=== PATIENT | female | born 1955 | race Caucasian/White ===

== ENCOUNTER 2016-10-14 11:21 | Outpatient (CLI) | payer MEDICAID | END 2016-10-14 11:22 | disposition home or self-care (01) | DX: L40.0 Psoriasis vulgaris (principal); Z79.899 Other long term (current) drug therapy ==

== ENCOUNTER 2016-10-30 10:37 | Outpatient (CLI) | payer MEDICAID | END 2016-10-30 10:38 | DX: L40.0 Psoriasis vulgaris (principal); Z79.899 Other long term (current) drug therapy ==

== ENCOUNTER 2016-11-13 08:00 | Outpatient (CLI) | payer MEDICAID | END 2016-11-13 08:01 | disposition home or self-care (01) | DX: L40.0 Psoriasis vulgaris (principal); Z79.899 Other long term (current) drug therapy ==

== ENCOUNTER 2016-11-14 | Outpatient (CLI) | payer MEDICAID | END 2016-11-14 08:48 | disposition home or self-care (01) | DX: J44.9 Chronic obstructive pulmonary disease, unspecified (principal) ==

== ENCOUNTER 2016-11-14 08:45 | Outpatient (CLI) | payer MEDICAID | END 2016-11-14 08:46 | disposition home or self-care (01) | DX: Z13.820 Encounter for screening for osteoporosis (principal); M85.89 Other specified disorders of bone density and structure, multiple sites ==

== ENCOUNTER 2016-12-23 09:43 | Outpatient (CLI) | payer MEDICAID | END 2016-12-23 09:44 | disposition home or self-care (01) | DX: L40.0 Psoriasis vulgaris (principal); Z79.899 Other long term (current) drug therapy ==

== ENCOUNTER 2017-01-10 09:18 | Outpatient (CLI) | payer MEDICAID | END 2017-01-10 09:19 | disposition home or self-care (01) | DX: L40.0 Psoriasis vulgaris (principal); Z79.899 Other long term (current) drug therapy ==

== ENCOUNTER 2017-02-06 10:17 | Outpatient (CLI) | payer MEDICAID ==
[2017-02-06 14:08] LABS: BASOPHILS # (AUTO) 0.1 10^3/uL (0.0-0.1); BASOPHILS % (AUTO) 0.8 %; EOSINOPHILS # (AUTO) 0.1 10^3/uL (0.0-0.7); EOSINOPHILS % (AUTO) 0.8 %; HCT - HEMATOCRIT 37.8 % (37.0-47.0); HGB - HEMOGLOBIN 13.1 g/dL (12.0-16.0); LYMPHOCYTES % (AUTO) 25.4 %; MEAN CORPUSCULAR HEMOGLOBIN 32.8 pg (27.0-31.0); MEAN CORPUSCULAR HGB CONC 34.6 g/dL (32.0-36.0); MEAN CORPUSCULAR VOLUME 94.6 fL (81.0-99.0); MEAN PLATELET VOLUME 8.3 fL (7.9-10.8); MONOCYTES # (AUTO) 0.9 10^3/uL (0.0-1.0); RED BLOOD COUNT 3.99 10^6/uL (4.20-5.40); RED CELL DISTRIBUTION WIDTH 14.1 % (12.0-15.0); UNCORRECTED WHITE BLOOD COUNT 8.1 x10^3/uL; WHITE BLOOD COUNT 8.1 x10^3/uL (4.8-10.8)
[2017-02-06 14:29] LABS: ALBUMIN/GLOBULIN RATIO 1.3 (1.0-2.2); BILIRUBIN,TOTAL 0.5 mg/dL (0.2-1.0); CALCIUM 9.3 mg/dL (8.5-10.3); CREATININE 0.7 mg/dL (0.4-1.0); POTASSIUM 3.8 mmol/L (3.5-5.0); TOTAL PROTEIN 7.3 g/dL (6.7-8.2)
== END 2017-02-06 10:18 | disposition home or self-care (01) ==
LOC: LAB.N 10:17
PROVIDERS: ATTEND Nurse Practitioner Family
DX: L40.0 Psoriasis vulgaris (principal)
CPT/HCPCS: 36415; 80053; 85025

== ENCOUNTER 2017-03-04 13:20 | Outpatient (CLI) | payer MEDICAID ==
[2017-03-04 19:18] LABS: BASOPHILS # (AUTO) 0.1 10^3/uL (0.0-0.1); BASOPHILS % (AUTO) 1.1 %; EOSINOPHILS # (AUTO) 0.1 10^3/uL (0.0-0.7); EOSINOPHILS % (AUTO) 1.8 %; HCT - HEMATOCRIT 41.7 % (37.0-47.0); HGB - HEMOGLOBIN 13.6 g/dL (12.0-16.0); LYMPHOCYTES # (AUTO) 1.6 10^3/uL (1.5-3.5); LYMPHOCYTES % (AUTO) 24.1 %; MEAN CORPUSCULAR HEMOGLOBIN 31.8 pg (27.0-31.0); MEAN CORPUSCULAR HGB CONC 32.5 g/dL (32.0-36.0); MEAN CORPUSCULAR VOLUME 97.8 fL (81.0-99.0); MEAN PLATELET VOLUME 8.4 fL (7.9-10.8); MONOCYTES # (AUTO) 0.8 10^3/uL (0.0-1.0); MONOCYTES % (AUTO) 12.2 %; NEUTROPHILS # (AUTO) 3.9 10^3/uL (1.5-6.6); NEUTROPHILS % (AUTO) 60.8 %; RED BLOOD COUNT 4.27 10^6/uL (4.20-5.40); RED CELL DISTRIBUTION WIDTH 14.2 % (12.0-15.0); UNCORRECTED WHITE BLOOD COUNT 6.4 x10^3/uL; WHITE BLOOD COUNT 6.4 x10^3/uL (4.8-10.8)
[2017-03-04 19:19] LABS: ALBUMIN/GLOBULIN RATIO 1.4 (1.0-2.2); BILIRUBIN,TOTAL 0.6 mg/dL (0.2-1.0); CALCIUM 8.9 mg/dL (8.5-10.3); CREATININE 0.8 mg/dL (0.4-1.0); TOTAL PROTEIN 7.6 g/dL (6.7-8.2)
== END 2017-03-04 23:59 | disposition home or self-care (01) ==
LOC: LAB.N 13:20
PROVIDERS: ATTEND Nurse Practitioner Family
DX: Z79.899 Other long term (current) drug therapy (principal)
CPT/HCPCS: 36415; 80053; 85025

== ENCOUNTER 2017-04-01 10:50 | Outpatient (CLI) | payer MEDICAID ==
[2017-04-01 12:51] LABS: BASOPHILS # (AUTO) 0.1 10^3/uL (0.0-0.1); BASOPHILS % (AUTO) 0.7 %; EOSINOPHILS # (AUTO) 0.1 10^3/uL (0.0-0.7); EOSINOPHILS % (AUTO) 1.1 %; HCT - HEMATOCRIT 40.4 % (37.0-47.0); HGB - HEMOGLOBIN 13.7 g/dL (12.0-16.0); LYMPHOCYTES # (AUTO) 2.1 10^3/uL (1.5-3.5); LYMPHOCYTES % (AUTO) 27.4 %; MEAN CORPUSCULAR HEMOGLOBIN 32.1 pg (27.0-31.0); MEAN CORPUSCULAR HGB CONC 33.9 g/dL (32.0-36.0); MEAN CORPUSCULAR VOLUME 94.7 fL (81.0-99.0); MEAN PLATELET VOLUME 8.2 fL (7.9-10.8); MONOCYTES # (AUTO) 0.9 10^3/uL (0.0-1.0); NEUTROPHILS # (AUTO) 4.4 10^3/uL (1.5-6.6); NEUTROPHILS % (AUTO) 58.8 %; RED BLOOD COUNT 4.27 10^6/uL (4.20-5.40); RED CELL DISTRIBUTION WIDTH 13.4 % (12.0-15.0); UNCORRECTED WHITE BLOOD COUNT 7.5 x10^3/uL; WHITE BLOOD COUNT 7.5 x10^3/uL (4.8-10.8)
[2017-04-01 13:02] LABS: ALBUMIN/GLOBULIN RATIO 1.4 (1.0-2.2); BILIRUBIN,TOTAL 0.6 mg/dL (0.2-1.0); CREATININE 0.8 mg/dL (0.4-1.0); POTASSIUM 3.8 mmol/L (3.5-5.0); TOTAL PROTEIN 7.7 g/dL (6.7-8.2)
== END 2017-04-01 10:51 | disposition home or self-care (01) ==
LOC: LAB.N 10:50
PROVIDERS: ATTEND Nurse Practitioner Family
DX: L40.0 Psoriasis vulgaris (principal); Z79.899 Other long term (current) drug therapy
CPT/HCPCS: 36415; 80053; 85025

== ENCOUNTER 2017-04-15 09:44 | Outpatient (CLI) | payer MEDICAID ==
[2017-04-18 14:25] LABS: TEST RESULT REPORT (())
== END 2017-04-15 09:45 | disposition home or self-care (01) ==
LOC: LAB 09:44
PROVIDERS: ATTEND Nurse Practitioner Family
DX: L40.0 Psoriasis vulgaris (principal)
CPT/HCPCS: 36415; 81599; 86480; 87340

== ENCOUNTER 2017-05-08 13:28 | Outpatient (CLI) | payer MEDICAID ==
[2017-05-08 18:53] LABS: BASOPHILS # (AUTO) 0.1 10^3/uL (0.0-0.1); BASOPHILS % (AUTO) 0.9 %; EOSINOPHILS # (AUTO) 0.1 10^3/uL (0.0-0.7); EOSINOPHILS % (AUTO) 1.4 %; HCT - HEMATOCRIT 40.7 % (37.0-47.0); HGB - HEMOGLOBIN 13.4 g/dL (12.0-16.0); LYMPHOCYTES # (AUTO) 1.6 10^3/uL (1.5-3.5); LYMPHOCYTES % (AUTO) 26.1 %; MEAN CORPUSCULAR HGB CONC 32.8 g/dL (32.0-36.0); MEAN CORPUSCULAR VOLUME 97.4 fL (81.0-99.0); MEAN PLATELET VOLUME 8.1 fL (7.9-10.8); MONOCYTES # (AUTO) 0.7 10^3/uL (0.0-1.0); MONOCYTES % (AUTO) 11.7 %; NEUTROPHILS # (AUTO) 3.6 10^3/uL (1.5-6.6); NEUTROPHILS % (AUTO) 59.9 %; RED BLOOD COUNT 4.18 10^6/uL (4.20-5.40); RED CELL DISTRIBUTION WIDTH 14.1 % (12.0-15.0); UNCORRECTED WHITE BLOOD COUNT 6.1 x10^3/uL; WHITE BLOOD COUNT 6.1 x10^3/uL (4.8-10.8)
[2017-05-08 19:02] LABS: ALBUMIN/GLOBULIN RATIO 1.4 (1.0-2.2); BILIRUBIN,TOTAL 0.7 mg/dL (0.2-1.0); CREATININE 0.8 mg/dL (0.4-1.0); POTASSIUM 4.3 mmol/L (3.5-5.0); TOTAL PROTEIN 7.3 g/dL (6.7-8.2)
== END 2017-05-08 13:29 ==
LOC: LAB.N 13:28
PROVIDERS: ATTEND Nurse Practitioner Family
DX: Z79.899 Other long term (current) drug therapy (principal)
CPT/HCPCS: 36415; 80053; 85025

== ENCOUNTER 2017-07-04 09:12 | Outpatient (CLI) | payer MEDICAID ==
[2017-07-04 13:20] LABS: BASOPHILS % (AUTO) 0.8 %; EOSINOPHILS # (AUTO) 0.1 10^3/uL (0.0-0.7); EOSINOPHILS % (AUTO) 1.9 %; HCT - HEMATOCRIT 39.2 % (37.0-47.0); HGB - HEMOGLOBIN 13.2 g/dL (12.0-16.0); LYMPHOCYTES # (AUTO) 2.1 10^3/uL (1.5-3.5); LYMPHOCYTES % (AUTO) 35.9 %; MEAN CORPUSCULAR HEMOGLOBIN 32.1 pg (27.0-31.0); MEAN CORPUSCULAR HGB CONC 33.6 g/dL (32.0-36.0); MEAN CORPUSCULAR VOLUME 95.7 fL (81.0-99.0); MEAN PLATELET VOLUME 7.8 fL (7.9-10.8); MONOCYTES # (AUTO) 0.5 10^3/uL (0.0-1.0); MONOCYTES % (AUTO) 8.6 %; NEUTROPHILS % (AUTO) 52.8 %; RED CELL DISTRIBUTION WIDTH 13.8 % (12.0-15.0); UNCORRECTED WHITE BLOOD COUNT 5.7 x10^3/uL; WHITE BLOOD COUNT 5.7 x10^3/uL (4.8-10.8)
[2017-07-04 13:44] LABS: THYROID STIMULATING HORMONE 1.65 uIU/mL (0.34-5.60)
[2017-07-04 13:50] LABS: ALBUMIN/GLOBULIN RATIO 1.4 (1.0-2.2); BILIRUBIN,TOTAL 0.5 mg/dL (0.2-1.0); CALCIUM 8.5 mg/dL (8.5-10.3); CREATININE 0.9 mg/dL (0.4-1.0); POTASSIUM 3.7 mmol/L (3.5-5.0); TOTAL PROTEIN 7.1 g/dL (6.7-8.2)
[2017-07-04 13:53] LABS: FOLATE 23.01 ng/mL (5.90 - >24.8)
[2017-07-04 14:07] LABS: IRON 96 ug/dL (28-170); TOTAL IRON BINDING CAPACITY 256 ug/dL (250-450); TRANSFERRIN 183 mg/dL (192-382)
== END 2017-07-04 09:13 | disposition home or self-care (01) ==
LOC: LAB.N 09:12
PROVIDERS: ATTEND Nurse Practitioner Family
DX: E07.9 Disorder of thyroid, unspecified (principal); I10 Essential (primary) hypertension; M12.89 Other specific arthropathies, not elsewhere classified, multiple sites; E53.8 Deficiency of other specified B group vitamins; Z79.899 Other long term (current) drug therapy; G90.09 Other idiopathic peripheral autonomic neuropathy; L40.0 Psoriasis vulgaris
CPT/HCPCS: 36415; 80053; 82607; 82746; 83540; 84439; 84443; 84466; 85025

== ENCOUNTER 2017-07-07 18:54 | Outpatient (CLI) | payer MEDICAID ==
--- NOTE | 2017-07-09 09:07 | Ultrasound Report ---
HEAD AND NECK ULTRASOUND: 07/07/2017 COMPARISON: Neck ultrasound 04/09/2016. INDICATION: Followup thyroid nodules. TECHNIQUE: Sonographic evaluation of the thyroid ws performed. FINDINGS: There are several bilateral mixed solid and cystic thyroid nodules. They are very small m easuring up to 4 mm on the right and 5 mm on the left. One similar nodule is in the isthmus, 5 mm. Background echogenicity of the thyroid appears normal. There is no increased vascularity. Right lobe 4.7 x 1.7 x 1.4 cm. Volume is 6 mL. Left lobe 4.8 x 1.7 x 1.2 cm. Volume is 5 mL. IMPRESSION: MULTIPLE BILATERAL SUBCENTIMETER THYROID NODULES. NO APPRECIABLE CHANGE. JOB #: [id number] EXT JOB #:[id number]
== END 2017-07-07 18:55 | disposition home or self-care (01) ==
LOC: DI 18:54
PROVIDERS: ATTEND Internal Medicine
DX: E04.2 Nontoxic multinodular goiter (principal)
CPT/HCPCS: 76536

== ENCOUNTER 2017-09-25 08:00 | Outpatient (CLI) | payer MEDICAID ==
[2017-09-25 12:53] LABS: BASOPHILS % (AUTO) 0.8 %; EOSINOPHILS % (AUTO) 0.9 %; LYMPHOCYTES # (AUTO) 1.5 10^3/uL (1.5-3.5); LYMPHOCYTES % (AUTO) 33.6 %; MEAN CORPUSCULAR HEMOGLOBIN 31.7 pg (27.0-31.0); MEAN CORPUSCULAR HGB CONC 34.2 g/dL (32.0-36.0); MEAN CORPUSCULAR VOLUME 92.9 fL (81.0-99.0); MEAN PLATELET VOLUME 8.1 fL (7.9-10.8); MONOCYTES # (AUTO) 0.4 10^3/uL (0.0-1.0); MONOCYTES % (AUTO) 9.6 %; NEUTROPHILS # (AUTO) 2.4 10^3/uL (1.5-6.6); NEUTROPHILS % (AUTO) 55.1 %; PLT - PLATELET COUNT 273 10^3/uL (130-450); RED CELL DISTRIBUTION WIDTH 12.3 % (12.0-15.0); WHITE BLOOD COUNT 4.4 x10^3/uL (4.8-10.8)
[2017-09-25 13:12] LABS: ALBUMIN 4.2 g/dL (3.2-5.5); ALBUMIN/GLOBULIN RATIO 1.3 (1.0-2.2); BILIRUBIN,TOTAL 0.3 mg/dL (0.2-1.0); CALCIUM 8.5 mg/dL (8.5-10.3); CREATININE 0.6 mg/dL (0.4-1.0); TOTAL PROTEIN 7.4 g/dL (6.7-8.2)
== END 2017-09-25 08:01 ==
LOC: LAB.N 08:00
PROVIDERS: ATTEND Nurse Practitioner Family
DX: Z79.899 Other long term (current) drug therapy (principal); L40.0 Psoriasis vulgaris
CPT/HCPCS: 36415; 80053; 85025

== ENCOUNTER 2017-11-03 08:00 | Outpatient (CLI) | payer MEDICAID ==
[2017-11-03 19:12] LABS: BASOPHILS # (AUTO) 0.1 10^3/uL (0.0-0.1); BASOPHILS % (AUTO) 0.9 %; EOSINOPHILS % (AUTO) 0.6 %; HGB - HEMOGLOBIN 13.7 g/dL (12.0-16.0); LYMPHOCYTES # (AUTO) 1.9 10^3/uL (1.5-3.5); LYMPHOCYTES % (AUTO) 27.6 %; MEAN CORPUSCULAR HEMOGLOBIN 30.4 pg (27.0-31.0); MEAN CORPUSCULAR HGB CONC 32.7 g/dL (32.0-36.0); MEAN CORPUSCULAR VOLUME 93.1 fL (81.0-99.0); MEAN PLATELET VOLUME 8.5 fL (7.9-10.8); MONOCYTES # (AUTO) 0.6 10^3/uL (0.0-1.0); MONOCYTES % (AUTO) 8.5 %; NEUTROPHILS # (AUTO) 4.3 10^3/uL (1.5-6.6); NEUTROPHILS % (AUTO) 62.4 %; PLT - PLATELET COUNT 287 10^3/uL (130-450); RED BLOOD COUNT 4.49 10^6/uL (4.20-5.40); RED CELL DISTRIBUTION WIDTH 12.8 % (12.0-15.0); WHITE BLOOD COUNT 6.9 x10^3/uL (4.8-10.8)
[2017-11-03 19:17] LABS: ALBUMIN 4.5 g/dL (3.2-5.5); ALBUMIN/GLOBULIN RATIO 1.5 (1.0-2.2); BILIRUBIN,TOTAL 0.7 mg/dL (0.2-1.0); CALCIUM 8.7 mg/dL (8.5-10.3); CREATININE 0.8 mg/dL (0.4-1.0); TOTAL PROTEIN 7.5 g/dL (6.7-8.2)
== END 2017-11-03 08:01 | disposition home or self-care (01) ==
LOC: LAB.N 08:00
PROVIDERS: ATTEND Nurse Practitioner Family
DX: L40.0 Psoriasis vulgaris (principal); Z79.899 Other long term (current) drug therapy
CPT/HCPCS: 36415; 80053; 85025

== ENCOUNTER 2018-01-28 10:53 | Outpatient (CLI) | payer MEDICAID ==
[2018-01-28 19:16] LABS: HGB - HEMOGLOBIN 12.6 g/dL (12.0-16.0); MEAN CORPUSCULAR HEMOGLOBIN 31.7 pg (27.0-31.0); MEAN CORPUSCULAR HGB CONC 32.8 g/dL (32.0-36.0); MEAN CORPUSCULAR VOLUME 96.8 fL (81.0-99.0); MEAN PLATELET VOLUME 7.3 fL (7.9-10.8); RED BLOOD COUNT 3.98 10^6/uL (4.20-5.40); RED CELL DISTRIBUTION WIDTH 14.7 % (12.0-15.0); WHITE BLOOD COUNT 4.9 x10^3/uL (4.8-10.8)
[2018-01-28 19:30] LABS: ALBUMIN 4.1 g/dL (3.2-5.5); ALBUMIN/GLOBULIN RATIO 1.6 (1.0-2.2); BILIRUBIN,TOTAL 0.8 mg/dL (0.2-1.0); CALCIUM 8.6 mg/dL (8.5-10.3); CREATININE 0.8 mg/dL (0.4-1.0); TOTAL PROTEIN 6.6 g/dL (6.7-8.2)
== END 2018-01-28 10:54 ==
LOC: LAB.N 10:53
PROVIDERS: ATTEND Internal Medicine
DX: R73.9 Hyperglycemia, unspecified (principal); E07.9 Disorder of thyroid, unspecified; E53.8 Deficiency of other specified B group vitamins
CPT/HCPCS: 36415; 80053; 84443; 85027

== ENCOUNTER 2018-04-20 15:48 | Outpatient (CLI) | payer MEDICAID ==
--- NOTE | 2018-04-21 10:11 | Mammography Report ---
Procedure Date: 04/20/2018 Accession Number: [id number] / [id number] Procedure: MGN - Screening Mammo Dig Bilat CPT Code: FULL RESULT: EXAM: Screening Mammo Dig Bilat DATE: 04/20/2018 4:18 PM CLINICAL HISTORY: 62-year-old female with history of left breast biopsy with benign pathology presents for screening mammogram. TECHNIQUE: Bilateral CC and MLO views were obtained. COMPARISON: 03/29/2016. FINDINGS: The breasts demonstrate scattered fibroglandular densities bilaterally. Typically benign bilateral vascular calcifications are noted. No suspicious masses, clustered microcalcifications, or regions of architectural distortion are identified. IMPRESSION: Benign findings RECOMMENDATION: Routine annual screening unless otherwise clinically indicated. BIRADS CATEGORY 2: Benign findings STANDARD QUALIFYING STATEMENTS: 1. This examination was reviewed with the aid of Computer-Aided Detection (CAD). 2. A negative or benign imaging report should not delay biopsy if clinically suspicious findings are present. Consider surgical consultation if warrented. More than 5% of cancers are not identified by imaging. 3. Dense breasts may obscure an underlying neoplasm.
== END 2018-04-20 15:49 | disposition home or self-care (01) ==
LOC: DI.N 15:48
PROVIDERS: ATTEND Internal Medicine
DX: Z12.31 Encounter for screening mammogram for malignant neoplasm of breast (principal)
CPT/HCPCS: 77067

== ENCOUNTER 2018-06-22 09:36 | Day surgery (SDC) | payer MEDICAID ==
[2018-06-22] MEDS ORDERED: LACTATED RINGERS 1,000 ML IV ONE ×2 (09:57)
[2018-06-22] MEDS ORDERED: MIDAZOLAM 2 MG/2 ML VIAL IVP ONE (11:04)
[2018-06-22] MEDS ORDERED: fentaNYL 250 MCG/5 ML VIAL IVP ONE (11:04)
[2018-06-22 11:56] VITALS: BP 110/73
== END 2018-06-22 09:37 | disposition home or self-care (01) ==
LOC: SDS 09:36
PROVIDERS: ATTEND Surgery
PROC: 0DBK8ZZ Excision of Ascending Colon, Via Natural or Artificial Opening Endoscopic (ICD-10-PCS; principal; 2018-06-22 11:15)
DX: Z12.11 Encounter for screening for malignant neoplasm of colon (principal); D12.2 Benign neoplasm of ascending colon; K64.8 Other hemorrhoids; K57.30 Diverticulosis of large intestine without perforation or abscess without bleeding; R63.4 Abnormal weight loss; J43.9 Emphysema, unspecified; E66.9 Obesity, unspecified; Z68.32 Body mass index [BMI] 32.0-32.9, adult; Z87.891 Personal history of nicotine dependence
CPT/HCPCS: 45385; J3010; J7120

== ENCOUNTER 2018-07-17 09:52 | Outpatient (CLI) | payer MEDICAID ==
--- NOTE | 2018-07-17 11:05 | XRAY Report ---
Reason: PAIN IN LEFT WRIST,PAIN IN JOINTS OF LEFT HAND Procedure Date: 07/17/2018 Accession Number: [id number] / [id number] Procedure: XRN - Wrist 4 View LT CPT Code: FULL RESULT: EXAM: LEFT WRIST RADIOGRAPHY EXAM DATE: 07/17/2018 10:10 AM. CLINICAL HISTORY: Pain in left wrist. Pain in joints of left hand. COMPARISON: WRIST 4 VIEW LT 08/15/2016 11:54 AM. TECHNIQUE: 4 views. FINDINGS: Interval arthrodesis of carpal bones with 2 partially threaded cannulated screws as well as resection of the scaphoid with partial osseous fusion of carpal bones. No acute fracture or dislocation is identified. IMPRESSION: Interval wrist joint fusion with resection of the scaphoid. RADIA
--- NOTE | 2018-07-17 11:06 | XRAY Report ---
Reason: pain in joints of left hand/wrist Procedure Date: 07/17/2018 Accession Number: [id number] / [id number] Procedure: XRN - Forearm LT CPT Code: FULL RESULT: EXAM: LEFT FOREARM RADIOGRAPHY EXAM DATE: 07/17/2018 10:20 AM. CLINICAL HISTORY: Pain in joints of left hand/wrist. COMPARISON: WRIST 4 VIEW LT 07/17/2018 10:10 AM. TECHNIQUE: 2 views. FINDINGS: No fracture or dislocation of the radius or ulna is identified. Visualized aspects of the elbow joint are unremarkable. For findings of the wrist, please refer to radiographs of the wrist performed at the same time. IMPRESSION: No fracture or dislocation of radius or ulna. RADIA
== END 2018-07-17 09:53 | disposition home or self-care (01) ==
LOC: DI.N 09:52
PROVIDERS: ATTEND Internal Medicine
DX: M25.532 Pain in left wrist (principal); M25.542 Pain in joints of left hand; Z98.1 Arthrodesis status

== ENCOUNTER 2019-02-24 08:00 | Outpatient (CLI) | payer MEDICAID ==
[2019-02-24 19:00] LABS: BASOPHILS % (AUTO) 0.7 %; EOSINOPHILS % (AUTO) 0.9 %; HGB - HEMOGLOBIN 13.7 g/dL (12.0-16.0); LYMPHOCYTES # (AUTO) 0.8 10^3/uL (1.5-3.5); LYMPHOCYTES % (AUTO) 20.6 %; MEAN CORPUSCULAR HEMOGLOBIN 31.5 pg (27.0-31.0); MEAN CORPUSCULAR HGB CONC 32.5 g/dL (32.0-36.0); MEAN CORPUSCULAR VOLUME 97.1 fL (81.0-99.0); MEAN PLATELET VOLUME 7.4 fL (7.9-10.8); MONOCYTES # (AUTO) 0.7 10^3/uL (0.0-1.0); MONOCYTES % (AUTO) 16.5 %; NEUTROPHILS # (AUTO) 2.4 10^3/uL (1.5-6.6); NEUTROPHILS % (AUTO) 61.3 %; PLT - PLATELET COUNT 193 10^3/uL (130-450); RED BLOOD COUNT 4.35 10^6/uL (4.20-5.40); RED CELL DISTRIBUTION WIDTH 15.4 % (12.0-15.0); WHITE BLOOD COUNT 3.9 x10^3/uL (4.8-10.8)
[2019-02-24 19:13] LABS: ALBUMIN 4.1 g/dL (3.2-5.5); ALBUMIN/GLOBULIN RATIO 1.2 (1.0-2.2); ALKALINE PHOSPHATASE 56 IU/L (42-121); ALT ALANINE AMINOTRANSFERASE 15 IU/L (10-60); AST ASPARTATE AMINOTRANSFERASE 20 IU/L (10-42); BILIRUBIN,TOTAL 0.7 mg/dL (0.2-1.0); BUN - BLOOD UREA NITROGEN 17 mg/dL (6-20); CARBON DIOXIDE - CO2 25 mmol/L (21-32); CHLORIDE 103 mmol/L (101-111); CHOL/HDL RATIO 2.8 (<4.4); CHOLESTEROL 256 mg/dL; CREATININE 0.8 mg/dL (0.4-1.0); GFR - MDRD 73 (>89); GLUCOSE 112 mg/dL (70-100); HDL CHOLESTEROL 90 mg/dL; LDL CHOLESTEROL,CALCULATED 144 mg/dL; LDL/HDL RATIO 1.6 (<4.4); SODIUM 137 mmol/L (135-145); TOTAL PROTEIN 7.6 g/dL (6.7-8.2); VLDL CHOLESTEROL 22 mg/dL
[2019-02-24 20:15] LABS: THYROID STIMULATING HORMONE 1.07 uIU/mL (0.34-5.60)
[2019-02-24 20:26] LABS: FOLATE 6.64 ng/mL (5.90 - >24.8)
== END 2019-02-24 23:59 | disposition home or self-care (01) ==
LOC: LAB.N 08:00
PROVIDERS: ATTEND Internal Medicine
DX: J44.9 Chronic obstructive pulmonary disease, unspecified (principal); R73.9 Hyperglycemia, unspecified; I10 Essential (primary) hypertension; R53.81 Other malaise; M19.90 Unspecified osteoarthritis, unspecified site; E53.8 Deficiency of other specified B group vitamins; E07.9 Disorder of thyroid, unspecified; Z79.899 Other long term (current) drug therapy
CPT/HCPCS: 36415; 80053; 80061; 82607; 82746; 83721; 84443; 85025

== ENCOUNTER 2019-05-27 05:32 | Outpatient (CLI) | payer MEDICAID | END 2019-05-27 05:33 | disposition short-term general hospital (02) | LOC: EMS 05:32 | PROVIDERS: ATTEND Surgery | DX: R11.2 Nausea with vomiting, unspecified (principal); R06.02 Shortness of breath; R51 Headache | CPT/HCPCS: A0425; A0427; A0999 ==

== ENCOUNTER 2019-06-07 13:20 | Outpatient (CLI) | payer MEDICAID | END 2019-06-08 13:21 | disposition short-term general hospital (02) | LOC: EMS 13:20 | PROVIDERS: ATTEND Surgery | DX: R11.2 Nausea with vomiting, unspecified (principal); R10.9 Unspecified abdominal pain | CPT/HCPCS: A0425; A0427; A0999 ==

== ENCOUNTER 2019-06-22 14:24 | Outpatient (CLI) | payer MEDICAID | END 2019-06-22 14:25 | disposition critical access hospital (66) | LOC: EMS 14:24 | PROVIDERS: ATTEND Surgery | DX: R10.9 Unspecified abdominal pain (principal); R11.2 Nausea with vomiting, unspecified | CPT/HCPCS: A0425; A0429; A0999 ==

== ENCOUNTER 2019-06-22 14:48 | Emergency (ER) | payer MEDICAID ==
--- NOTE | 2019-06-22 15:04 | ED Physician Documentation ---
PD HPI ABD PAIN - Stated complaint Stated Complaint: R FLANK PX - History obtained from History obtained from: Patient - History of Present Illness Timing - onset: How many weeks ago (3-4 weeks ago, onset early May and seen at [facility] 05/27 with Dx of ureterolithiasis and given pain meds. Seen by Urology follow up with KUB done that showed stone was gone. Still having frequent fank to RUW pain, associated with nausea and voiting each morning. Improves with Zofran.) Timing - details: Abrupt onset (initially about a month ago, with symptoms c/w kidney stone. Seen at [place] and had CT showing some hydronephrosis but no ureteral stones (renal stones yes). Considered passed stone. Has had pains intermittently to right abd and right flank. Has morning nausea and some emesis daily for the past several weeks.) Quality: Cramping, Aching, Pain Location: RUQ, Epigastric Radiation: Right flank Improved by: Meds (antiemetics) Worsened by: No: Breathing, Palpation Associated symptoms: Nausea (daily in mornings). No: Fever, Diarrhea, Dysuria, Hematuria Similar symptoms before: Diagnosis (Prior kidney stones with similar pains. However had not had a ureteral stone visible on a CT scan a month ago in follow- up to a prior visit for presumed passed stone) Review of Systems Constitutional: denies: Fever, Chills Nose: denies: Rhinorrhea / runny nose, Congestion Throat: reports: Sore throat (from vomiting) Cardiac: denies: Chest pain / pressure, Palpitations Respiratory: denies: Dyspnea, Cough GI: reports: Abdominal Pain (RUQ to right flank area often the past few weeks.), Nausea, Vomiting (daily for the past few weeks, improves with Zofran but recurrent each morning.) : denies: Dysuria, Frequency, Discharge Skin: denies: Rash Musculoskeletal: reports: Back pain (right flank and lateral upper abd) Neurologic: reports: Generalized weakness. denies: Focal weakness, Difficulty speaking PD PAST MEDICAL HISTORY - Past Medical History Cardiovascular: None Respiratory: COPD, Emphysema, Pneumonia, Shortness of breath Endocrine/Autoimmune: None GI: Colon polyps : Kidney stones HEENT: Other Psych: Anxiety, Panic attacks Musculoskeletal: Osteoarthritis, Other Derm: Psoriasis - Past Surgical History Past Surgical History: Yes General: Hiatal hernia repair Ortho: Knee replacement /[employer]: Hysterectomy - Present Medications Home Medications: Ambulatory Orders Medication Instructions Recorded Confirmed DULoxetine [Cymbalta] 30 mg PO Q48H 02/14/14 04/01/16 Gabapentin [Neurontin] 1,200 mg PO TID #60 tablet 02/14/14 06/22/18 Zolpidem [Ambien] 5 mg PO QPM PRN 02/14/14 06/22/18 diazePAM [Valium] 5 mg PO TID PRN 02/14/14 06/22/18 Folic Acid 1 mg PO DAILY 03/29/16 06/22/18 Hydrochlorothiazide 25 mg PO DAILY 03/29/16 04/01/16 Tiotropium [place] [Spiriva] 1 puffs INH DAILY 03/29/16 06/22/18 Dicyclomine HCl 10 mg PO TID PRN #25 capsule 06/22/19 Famotidine 20 mg PO DAILY #30 tablet 06/22/19 Ondansetron Odt [Zofran] 4 mg TL Q6H PRN #25 tablet 06/22/19 Sucralfate [Carafate] 1 gm PO TID #30 tablet 06/22/19 - Allergies Allergies/Adverse Reactions: Allergies Allergy/AdvReac Type Severity Reaction Status Date / Time Penicillins Allergy Severe Edema Verified 06/22/19 15:04 venlafaxine HCl * Allergy Severe Kidney Verified 06/22/19 15:04 [From Effexor] failure oxycodone AdvReac Intermediate Somnolence Verified 06/22/19 15:04 - Social History Does the pt smoke?: No Smoking Status: Never smoker Does the pt drink ETOH?: No Does the pt have substance abuse?: Yes PD ED PE NORMAL - Vitals Vital signs reviewed: Yes - General General: Alert and oriented X 3, Well developed/nourished - HEENT HEENT: Pharynx benign - Neck Neck: Supple, no meningeal sign, No adenopathy - Cardiac Cardiac: RRR, No murmur - Respiratory Respiratory: Clear bilaterally - Abdomen Abdomen: Normal bowel sounds, Soft, Non distended, No organomegaly, Other (some tender right upper abd and lower costal margin. No CVA tenderness. ) - Female Female : Deferred - Rectal Rectal: Deferred - Back Back: No CVA TTP - Derm Derm: Normal color, Warm and dry, No rash - Extremities Extremities: No tenderness to palpate, Normal ROM s pain, No edema, No calf tenderness / cord - Neuro Neuro: Alert and oriented X 3, No motor deficit, Normal speech Results - Vitals Vitals: Vital Signs - 24 hr 06/22/19 06/22/19 14:51 15:50 Temperature 37.0 C 36.9 C Heart Rate 82 73 Respiratory 20 16 Rate Blood Pressure 136/93 H 117/91 H O2 Saturation 96 97 Oxygen O2 Source [With Activity] Room air O2 Source [Without Activity] Nasal cannula O2 Source Room air - Labs Labs: Laboratory Tests 06/22/19 06/22/19 15:11 15:11 WBC 4.8 RBC 4.26 Hgb 13.8 Hct 41.9 MCV 98.4 MCH 32.4 H MCHC 32.9 RDW 12.3 Plt Count 259 MPV 9.3 Neut # (Auto) 3.4 Lymph # (Auto) 0.9 L [place] # (Auto) 0.5 Eos # (Auto) 0.0 Baso # (Auto) 0.0 Absolute Nucleated RBC 0.00 Nucleated RBC % 0.0 Sodium 142 Potassium 3.7 Chloride 103 Carbon Dioxide 28 Anion Gap 11.0 BUN 12 Creatinine 0.7 Estimated GFR (MDRD) 85 L Glucose 119 H Calcium 9.0 Magnesium 1.7 Total Bilirubin 0.9 AST 17 ALT 13 Alkaline Phosphatase 43 Total Protein 7.5 Albumin 4.6 Globulin 2.9 Albumin/Globulin Ratio 1.6 Lipase 26 - Rads (name of study) KUB CT Radiology: Prelim report reviewed (Several renal stones. The kidney appears normal. There are no ureteral stones nor hydronephrosis. Gallbladder is normal and bile duct is normal as well. Pancreas appears normal.), See rad report PD MEDICAL DECISION MAKING - ED course Complexity details: reviewed results, considered differential (Can get a scan again to see if subsequent stones have shifted down. Will evaluate blood tests and CT as well for gallbladder possibilities. Will check lipase for pancreas. She has been having upper abdominal pain to the right side associated with nausea daily. Consider possibilities of gastritis or duodenitis as well. We will add medications for that and have her follow-up with her primary care and possibly referral for GI.), d/w patient Departure - Departure Clinical Impression: Right upper quadrant abdominal pain Condition: Stable Record reviewed to determine appropriate education?: Yes Instructions: ED Abdominal Pain Unkn Cause Follow-Up: Angela Stover MD [Primary Care Provider] - Prescriptions: Dicyclomine HCl 10 mg PO TID PRN #25 capsule PRN Reason: Abdominal Pain Famotidine 20 mg PO DAILY #30 tablet Ondansetron Odt [Zofran] 4 mg TL Q6H PRN #25 tablet PRN Reason: Nausea / Vomiting Sucralfate [Carafate] 1 gm PO TID #30 tablet Comments: Not clear the cause of your pain. Given the pain she been having as well as a daily nausea, I consider whether there may be some irritation of the stomach or the initial part of the intestine. Treat this with acid reducing medicine famotidine daily and also to coat the stomach and initial intestine with sucralfate 3 times a day. This is taken as a tablet. Continue ondansetron if needed for nausea. He can try dicyclomine for stomach pains and cramps. Add Tylenol if needed. Follow-up with your primary care for further evaluation. The might consider referring you for scope to evaluate the stomach and in initial intestine. Your CT scan did not show any abnormality of your gallbladder pancreas or liver. There is stones in the kidney but none in the ureter.
[2019-06-22] MEDS ORDERED: HYDROmorphone 1 MG/ML CARPUJECT IVP STA ×2 (15:07→16:42)
[2019-06-22] MEDS ORDERED: FAMOTIDINE 20 MG/2 ML VIAL IVP STA (15:07)
[2019-06-22] MEDS ORDERED: SODIUM CHLORIDE 0.9% 1,000 ML IV ONE (15:07)
[2019-06-22] MEDS ORDERED: ONDANSETRON 4 MG/2 ML VIAL IVP STA (15:07)
[2019-06-22] MEDS ORDERED: KETOROLAC 15 MG/ML VIAL IVP STA (15:07)
[2019-06-22 15:20] LABS: BASOPHILS % (AUTO) 0.6 %; EOSINOPHILS % (AUTO) 0.2 %; HGB - HEMOGLOBIN 13.8 g/dL (12.0-16.0); LYMPHOCYTES # (AUTO) 0.9 10^3/uL (1.5-3.5); MEAN CORPUSCULAR HEMOGLOBIN 32.4 pg (27.0-31.0); MEAN CORPUSCULAR HGB CONC 32.9 g/dL (32.0-36.0); MEAN CORPUSCULAR VOLUME 98.4 fL (81.0-99.0); MEAN PLATELET VOLUME 9.3 fL (7.9-10.8); MONOCYTES # (AUTO) 0.5 10^3/uL (0.0-1.0); MONOCYTES % (AUTO) 10.1 %; NEUTROPHILS # (AUTO) 3.4 10^3/uL (1.5-6.6); NEUTROPHILS % (AUTO) 70.7 %; PLT - PLATELET COUNT 259 10^3/uL (130-450); RED BLOOD COUNT 4.26 10^6/uL (4.20-5.40); RED CELL DISTRIBUTION WIDTH 12.3 % (12.0-15.0); WHITE BLOOD COUNT 4.8 x10^3/uL (4.8-10.8)
[2019-06-22 15:36] LABS: ALBUMIN 4.6 g/dL (3.2-5.5); ALBUMIN/GLOBULIN RATIO 1.6 (1.0-2.2); BILIRUBIN,TOTAL 0.9 mg/dL (0.2-1.0); CREATININE 0.7 mg/dL (0.4-1.0); MAGNESIUM 1.7 mg/dL (1.7-2.8); TOTAL PROTEIN 7.5 g/dL (6.7-8.2)
--- NOTE | 2019-06-22 16:00 | CT Report ---
Reason: RUQ/right flank pain Procedure Date: 06/22/2019 Accession Number: [id number] / [id number] Procedure: CT - Abdomen/Pelvis WO CPT Code: FULL RESULT: EXAM: CT ABDOMEN AND PELVIS EXAM DATE: 06/22/2019 03:29 PM. CLINICAL HISTORY: RUQ/right flank pain. COMPARISONS: None. TECHNIQUE: Routine helical CT imaging was performed through the abdomen and pelvis. IV contrast: None. Enteric contrast: No. Reconstructions: Coronal and sagittal. In accordance with CT protocol optimization, one or more of the following dose reduction techniques were utilized for this exam: automated exposure control, adjustment of mA and/or KV based on patient size, or use of iterative reconstructive technique. FINDINGS: Lung Bases: Unremarkable. Liver: Multiple liver cysts largest 4.3 cm right lobe. Calcifications in the falciform ligament region. Possible density at the region of the falciform, left lobe. Gallbladder/Bile Ducts: Unremarkable. Spleen: Normal. Pancreas: Normal. Adrenal Glands: Normal. Kidneys: Right renal cysts. 3 mm nonobstructing calcification upper and lower pole left renal cyst. Left kidney 8 mm cortical density with posterior possibly a hyperdense cyst. Lower pole vascular or collecting system nonobstructing calcification. Peritoneal Cavity/Bowel: Post gastric surgery. Diverticulosis. No retroperitoneal adenopathy. No free fluid in the abdomen appendix is not visualized but no pericecal inflammatory changes. Pelvic Organs: Normal. The bladder and visualized pelvic organs are within normal limits. Vasculature: No aneurysms or other significant abnormality. Bones: L3 compression. Other: None. IMPRESSION: 1. Nonobstructing right renal calcifications 3 mm. Right renal cyst 2. Left kidney 8 mm density too small to characterize possible hyperdense cyst. Left renal cyst. Vascular versus nonobstructing collecting system calcification. 3. Appendix not identified but no pericecal inflammatory changes. 4. Diverticulosis. 5. Possible low density lesion in the left lobe near the falciform ligament. Further evaluation could be with CT liver protocol. 6. Liver cysts. RADIA
[2019-06-22] MEDS ORDERED: MAG HYDROX/AL HYDROX/SIMETH 30 ML UDC PO STA (16:42)
[2019-06-22 17:59] LABS: BILIRUBIN,URINE NEGATIVE (NEGATIVE); GLUCOSE, URINE (UA) NEGATIVE (NEGATIVE); KETONES,URINE (UA) TRACE mg/dL (NEGATIVE); LEUKOCYTE ESTERASE, URINE NEGATIVE (NEGATIVE); NITRITE,URINE NEGATIVE (NEGATIVE); OCCULT BLOOD,URINE TRACE-INTA (NEGATIVE); PH,URINE 7.5 PH (5.0-7.5); PROTEIN,URINE NEGATIVE (NEGATIVE); UROBILINOGEN,URINE 0.2 (NORMAL) E.U./dL (NORMAL)
[2019-06-22 18:01] LABS: CLARITY,URINE CLEAR (CLEAR)
[2019-06-22 18:24] VITALS: BP 135/92
[2019-06-22] MEDS ORDERED: ONDANSETRON ODT 4 MG TABLET TL STA (18:58)
== END 2019-06-22 18:52 | disposition home or self-care (01) ==
LOC: EDUNIT# → ED 14:48
DX: R10.11 Right upper quadrant pain (principal); R11.2 Nausea with vomiting, unspecified; N20.0 Calculus of kidney; N28.1 Cyst of kidney, acquired; K76.89 Other specified diseases of liver
CPT/HCPCS: 36415; 74176; 80053; 81003; 83690; 83735; 85025; 96361; 96374; 96375; 96376; 99284; 99285; A9270; J1170; Q0162; 81001; 87086

== ENCOUNTER 2019-09-21 10:15 | Outpatient (CLI) | payer MEDICAID ==
--- NOTE | 2019-09-21 15:17 | XRAY Report ---
Reason: wrist pain Procedure Date: 09/21/2019 Accession Number: [id number] / [id number] Procedure: XRN - Hand 3 View RT CPT Code: Final Report FULL RESULT: EXAMS: RIGHT HAND AND WRIST RADIOGRAPHY EXAM DATE: 09/21/2019 11:05 AM. CLINICAL HISTORY: Fall, pain. COMPARISON: None. TECHNIQUE: 4 views of hand and 3 views of wrist. FINDINGS: Bones: Osteopenia. No definite fracture or other bone lesion. Joints: Mild degenerative changes in the first CMC joint and navicular multangular joint. Otherwise unremarkable. Soft Tissues: Mild soft tissue swelling. IMPRESSION: Mild soft tissue swelling. RADIA
--- NOTE | 2019-09-21 15:17 | XRAY Report ---
Reason: wrist pain Procedure Date: 09/21/2019 Accession Number: [id number] / [id number] Procedure: XRN - Wrist 3 View RT CPT Code: Final Report FULL RESULT: EXAMS: RIGHT HAND AND WRIST RADIOGRAPHY EXAM DATE: 09/21/2019 11:05 AM. CLINICAL HISTORY: Fall, pain. COMPARISON: None. TECHNIQUE: 4 views of hand and 3 views of wrist. FINDINGS: Bones: Osteopenia. No definite fracture or other bone lesion. Joints: Mild degenerative changes in the first CMC joint and navicular multangular joint. Otherwise unremarkable. Soft Tissues: Mild soft tissue swelling. IMPRESSION: Mild soft tissue swelling. RADIA
== END 2019-09-21 10:16 | disposition home or self-care (01) ==
LOC: DI.N 10:15
PROVIDERS: ATTEND Internal Medicine
DX: M18.11 Unilateral primary osteoarthritis of first carpometacarpal joint, right hand (principal); R22.31 Localized swelling, mass and lump, right upper limb

== ENCOUNTER 2020-03-07 08:00 | Outpatient (CLI) | payer MEDICAID ==
--- NOTE | 2020-03-07 12:01 | XRAY Report ---
Reason: ATYPICAL CHEST PAIN Procedure Date: 03/07/2020 Accession Number: [id number] / [id number] Procedure: WCP - Chest 2 View X-Ray CPT Code: 68382 Final Report FULL RESULT: PROCEDURE: Chest 2 View X-Ray INDICATIONS: ATYPICAL CHEST PAIN TECHNIQUE: 2 view(s) of the chest. COMPARISON: Chest x-ray 01/09/2016 FINDINGS: Surgical changes and devices: Partially visualized left shoulder arthroplasty. Clips are noted overlying the left upper quadrant. Lungs and pleura: No pleural effusions or pneumothorax. Lungs are clear. Mediastinum: Mediastinal contours are normal. Heart size is normal. Bones and chest wall: No suspicious bony abnormalities. Soft tissues appear unremarkable. IMPRESSION: No acute pulmonary process. Reviewed by: Seda Penaloza MD on 03/07/2020 12:00 PM PDT Approved by: Seda Penaloza MD on 03/07/2020 12:00 PM PDT Station ID: [id number]
== END 2020-03-07 08:01 | disposition home or self-care (01) ==
LOC: DI.WCP 08:00
PROVIDERS: ATTEND Internal Medicine
DX: R07.89 Other chest pain (principal); Z96.612 Presence of left artificial shoulder joint
CPT/HCPCS: 71046

== ENCOUNTER 2020-03-27 15:03 | Outpatient (CLI) | payer MEDICAID | END 2020-03-27 15:04 | disposition critical access hospital (66) | LOC: EMS 15:03 | PROVIDERS: ATTEND Surgery | DX: R05 Cough (principal); R11.10 Vomiting, unspecified | CPT/HCPCS: A0425; A0429; A0999 ==

== ENCOUNTER 2020-03-27 16:13 | Emergency (ER) | payer MEDICAID ==
[2020-03-27] MEDS ORDERED: SODIUM CHLORIDE 0.9% 1,000 ML IV STA (17:03)
[2020-03-27] MEDS ORDERED: DEXAMETHASONE 10 MG/ML VIAL IVP STA (17:04)
[2020-03-27] MEDS ORDERED: BENZONATATE 100 MG CAPSULE PO STA (17:04)
[2020-03-27] MEDS ORDERED: IPRATROPIUM/ALBUTEROL 3 ML NEB INH STA (17:04)
[2020-03-27] MEDS ORDERED: ONDANSETRON 4 MG/2 ML VIAL IVP STA (17:04)
[2020-03-27 17:25] LABS: BASOPHILS % (AUTO) 0.2 %; EOSINOPHILS % (AUTO) 0.5 %; HGB - HEMOGLOBIN 13.5 g/dL (12.0-16.0); LYMPHOCYTES % (AUTO) 23.2 %; MEAN CORPUSCULAR HEMOGLOBIN 33.6 pg (27.0-31.0); MEAN CORPUSCULAR HGB CONC 34.2 g/dL (32.0-36.0); MEAN CORPUSCULAR VOLUME 98.3 fL (81.0-99.0); MONOCYTES # (AUTO) 0.7 10^3/uL (0.0-1.0); MONOCYTES % (AUTO) 16.1 %; NEUTROPHILS # (AUTO) 2.5 10^3/uL (1.5-6.6); NEUTROPHILS % (AUTO) 59.8 %; PLT - PLATELET COUNT 139 10^3/uL (130-450); RED BLOOD COUNT 4.02 10^6/uL (4.20-5.40); WHITE BLOOD COUNT 4.2 x10^3/uL (4.8-10.8)
[2020-03-27 17:47] LABS: ALBUMIN/GLOBULIN RATIO 1.3 (1.0-2.2); BILIRUBIN,TOTAL 0.6 mg/dL (0.2-1.0); CALCIUM 8.8 mg/dL (8.5-10.3); CREATININE 0.9 mg/dL (0.4-1.0); TOTAL PROTEIN 7.1 g/dL (6.7-8.2)
--- NOTE | 2020-03-27 18:36 | XRAY Report ---
PROCEDURE: Chest 1 View X-Ray INDICATIONS: chest pain TECHNIQUE: One view of the chest was acquired. COMPARISON: 03/07/2020 FINDINGS: Surgical changes and devices: Prior left shoulder reverse arthroplasty hardware is again seen. Lungs and pleura: No pleural effusions or pneumothorax. Lungs are clear. Mediastinum: Mediastinal contours appear normal. Heart size is normal. Bones and chest wall: No suspicious bony lesions. Overlying soft tissues appear unremarkable. IMPRESSION: No acute cardiopulmonary pathology. Reviewed by: Geo Weber MD on 03/27/2020 6:35 PM PDT Approved by: Geo Weber MD on 03/27/2020 6:35 PM PDT Station ID: [id number]
--- NOTE | 2020-03-27 19:08 | CT Report ---
PROCEDURE: HEAD WO INDICATIONS: headache acute TECHNIQUE: Noncontrast 4.5 mm thick angled axial sections acquired from the foramen magnum to the vertex. For r adiation dose reduction, the following was used: automated exposure control, adjustment of mA and/or kV according to patient size. COMPARISON: None. FINDINGS: Image quality: Excellent. CSF spaces: Basal cisterns are patent. No extra-axial fluid collections. The ventricles are symmet nathan in size and shape. Brain: No intracranial bleeds or masses. There is cerebral volume loss for age, with resultant vent ricular and sulcal prominence. There are periventricular and deep white matter chronic small vessel ischemic changes. There is intracranial internal carotid artery atherosclerosis. Skull and face: Calvarium and visualized facial bones appear intact, without suspicious lesions. Sinuses: Visualized sinuses and mastoids are clear. IMPRESSION: 1. No CT evidence of acute intracranial pathology. 2. Age-appropriate atrophy and mild white matter chronic small vessel ischemic changes. Reviewed by: Geo Weber MD on 03/27/2020 7:07 PM PDT Approved by: Geo Weber MD on 03/27/2020 7:07 PM PDT Station ID: [id number]
--- NOTE | 2020-03-27 19:14 | ED Physician Documentation ---
PD HPI URI - Stated complaint Stated Complaint: POSS C+ - Chief complaint Chief Complaint: Resp - History obtained from History obtained from: Patient - History of Present Illness Timing - onset: How many days ago (4) Timing duration: Days (4) Timing details: Gradual onset, Still present Associated symptoms: Fever, Chills, Rhinorrhea, Dry cough, Chest pain (with coughing), Dyspnea. No: Sore throat, NVD, Bilateral edema Contributing factors: COPD / asthma. No: Sick contact, Travel, Immunocompromise d Improves by: MDI/nebulizer (but not well improved) Worsened by: Activity Similar symptoms before: Diagnosis (exac COPD and with bronchitis and pneumonia.) Recently seen: Not recently seen Review of Systems Constitutional: reports: Fever, Chills, Myalgias Nose: reports: Congestion Throat: denies: Sore throat Cardiac: reports: Chest pain / pressure (right lower anterior ribs/cartilage area). denies: Palpitations, Pedal edema, Calf pain Respiratory: reports: Dyspnea, Cough, Wheezing GI: reports: Nausea. denies: Abdominal Pain, Vomiting, Constipation, Diarrhea : denies: Dysuria, Frequency Skin: denies: Rash Neurologic: reports: Generalized weakness, Headache (frontal area moderate yesterday and into today.). 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: Hysterectomy - Present Medications Home Medications: Ambulatory Orders Medication Instructions Recorded Confirmed DULoxetine [Cymbalta] 30 mg PO Q48H 02/14/14 04/01/16 Gabapentin [Neurontin] 1,200 mg PO TID #60 tablet 02/14/14 06/22/18 Zolpidem [Ambien] 5 mg PO QPM PRN 02/14/14 06/22/18 diazePAM [Valium] 5 mg PO TID PRN 02/14/14 06/22/18 Folic Acid 1 mg PO DAILY 03/29/16 06/22/18 Hydrochlorothiazide 25 mg PO DAILY 03/29/16 04/01/16 Tiotropium [place] [Spiriva] 1 puffs INH DAILY 03/29/16 06/22/18 Dicyclomine HCl 10 mg PO TID PRN #25 capsule 06/22/19 Famotidine 20 mg PO DAILY #30 tablet 06/22/19 Ondansetron Odt [Zofran] 4 mg TL Q6H PRN #25 tablet 06/22/19 Sucralfate [Carafate] 1 gm PO TID #30 tablet 06/22/19 Benzonatate [Tessalon Perle] 100 mg PO TID PRN #25 capsule 03/27/20 Doxycycline Monohydrate 100 mg PO BID #14 tablet 03/27/20 Hydrocodone/Acetaminophen [[place] 1 each PO Q6H PRN #15 tablet 03/27/20 5-325 Tablet] Ipratropium [Atrovent] 0.5 mg INH Q6H #30 neb 03/27/20 dexAMETHasone [Decadron] 4 mg PO DAILY #7 tablet 03/27/20 - Allergies Allergies/Adverse Reactions: Allergies Allergy/AdvReac Type Severity Reaction Status Date / Time Penicillins Allergy Severe Edema Verified 03/27/20 16:24 venlafaxine HCl * Allergy Severe Kidney Verified 03/27/20 16:24 [From Effexor] failure oxycodone AdvReac Intermediate Somnolence Verified 03/27/20 16:24 - Living Situation Living Situation: reports: With spouse/s.o. Living Arrangement: reports: At home - Social History Does the pt smoke?: No Smoking Status: Never smoker Does the pt drink ETOH?: No Does the pt have substance abuse?: Yes - Immunizations Immunizations: TDAP >10years/unknown - POLST Patient has POLST: No PD ED PE NORMAL - Vitals Vital signs reviewed: Yes - General General: Alert and oriented X 3, Well developed/nourished - HEENT HEENT: Moist mucous membranes, Pharynx benign - Cardiac Cardiac: RRR, No murmur - Respiratory Respiratory: No respiratory distress, Other (exp wheezing but no coarse sounds nor focal crackles. ) - Abdomen Abdomen: Normal bowel sounds, Soft, Non tender, Non distended, No organomegaly, Other (there is tenderness at right lower costal margin, but not in upper abd. ) - Female Female : Deferred - Rectal Rectal: Deferred - Back Back: No CVA TTP - Derm Derm: Normal color, Warm and dry - Extremities Extremities: No tenderness to palpate, Normal ROM s pain, No edema, No calf tenderness / cord - Neuro Neuro: Alert and oriented X 3, No motor deficit, Normal speech Results - Vitals Vitals: Vital Signs - 24 hr 03/27/20 03/27/20 03/27/20 16:24 16:27 17:23 Temperature 36.7 C Heart Rate 88 85 84 Respiratory 16 12 20 Rate Blood Pressure 139/123 H 142/98 H O2 Saturation 96 97 03/27/20 03/27/20 03/27/20 18:27 20:00 20:33 Temperature Heart Rate 102 H 88 93 Respiratory 19 13 20 Rate Blood Pressure 142/80 H 140/80 H 143/92 H O2 Saturation 98 95 100 Oxygen O2 Source [With Activity] Room air O2 Source [Without Activity] Nasal cannula O2 Source Room air - Labs Labs: Laboratory Tests 03/27/20 03/27/20 03/27/20 17:21 17:21 17:21 WBC 4.2 L RBC 4.02 L Hgb 13.5 Hct 39.5 MCV 98.3 MCH 33.6 H MCHC 34.2 RDW 13.0 Plt Count 139 MPV 9.0 Neut # (Auto) 2.5 Lymph # (Auto) 1.0 L [place] # (Auto) 0.7 Eos # (Auto) 0.0 Baso # (Auto) 0.0 Absolute Nucleated RBC 0.00 Nucleated RBC % 0.0 Sodium 136 Potassium 3.8 Chloride 99 L Carbon Dioxide 19 L Anion Gap 18.0 H BUN 10 Creatinine 0.9 Estimated GFR (MDRD) 63 L Glucose 81 Lactic Acid 0.5 Calcium 8.8 Total Bilirubin 0.6 AST 33 ALT 19 Alkaline Phosphatase 49 Total Protein 7.1 Albumin 4.0 Globulin 3.1 Albumin/Globulin Ratio 1.3 Lipase 27 - Rads (name of study) chest xray Radiology: Prelim report reviewed (no acute infiltrates), See rad report head CT Radiology: Prelim report reviewed (no ICH nor acute process), See rad report PD MEDICAL DECISION MAKING - ED course Complexity details: reviewed results, re-evaluated patient (feeling improved with some fluids and pain meds, nebulizer and tessalon for cough. Sats are good. Respirations unlabored. ), considered differential, d/w patient Departure - Departure Disposition: 01 Home, Self Care Clinical Impression: Acute exacerbation of COPD with asthma Upper respiratory infection Qualifiers: URI type: unspecified URI Qualified Code(s): J06.9 - Acute upper respiratory infection, unspecified Condition: Stable Record reviewed to determine appropriate education?: Yes Instructions: ED Upper Resp Infec Abx Tx, ED COPD Flare Follow-Up: Angela Stover MD [Primary Care Provider] - Prescriptions: Ipratropium [Atrovent] 0.5 mg INH Q6H #30 neb dexAMETHasone [Decadron] 4 mg PO DAILY #7 tablet Doxycycline Monohydrate 100 mg PO BID #14 tablet Hydrocodone/Acetaminophen [[place] 5-325 Tablet] 1 each PO Q6H PRN #15 tablet PRN Reason: Pain Benzonatate [Tessalon Perle] 100 mg PO TID PRN #25 capsule PRN Reason: Cough Comments: Continue your albuterol nebulizers and add to it ipratropium 4 times a day at home for the next several days to a week. Add benzonatate as needed for cough. Your chest x-ray is clear without any signs of pneumonia. Your COVID test will result likely tomorrow and will call you with the results. We will treat this as an exacerbation of your COPD with likely a upper respiratory infection. Use Decadron steroid for inflammation and doxycycline antibiotic as directed for a week. Tylenol if needed for fevers or pains. Add pain medicine if needed for pain and also to aid in cough suppression. Follow-up with your primary care in the next 2 to 3 days, call for an appointment tomorrow. Return if worsening. Discharge Date/Time: 03/27/20 20:55
[2020-03-27] MEDS ORDERED: MORPHINE 2 MG/ML CARPUJECT IVP STA (19:20)
[2020-03-27] MEDS ORDERED: DOXYCYCLINE 100 MG TABLET PO STA (19:20)
[2020-03-27 20:33] VITALS: BP 143/92
== END 2020-03-27 20:55 | disposition home or self-care (01) ==
LOC: EDUNIT# → ED 16:13
DX: J44.1 Chronic obstructive pulmonary disease with (acute) exacerbation (principal); J06.9 Acute upper respiratory infection, unspecified; Z20.828 Contact with and (suspected) exposure to other viral communicable diseases
CPT/HCPCS: 36415; 70450; 71045; 80053; 83605; 83690; 85025; 87635; 94640; 96361; 96374; 96375; 99284; A9270

== ENCOUNTER 2020-04-11 08:15 | Outpatient (CLI) | payer MEDICAID ==
--- NOTE | 2020-04-11 09:19 | XRAY Report ---
Reason: LEFT WRIST SNAC Procedure Date: 04/11/2020 Accession Number: [id number] / [id number] Procedure: WCP - Wrist 3 View LT CPT Code: Final Report FULL RESULT: PROCEDURE: Wrist 3 View LT INDICATIONS: LEFT WRIST SNAC TECHNIQUE: 2 views of the wrist were acquired. COMPARISON: 07/17/2018 left wrist radiographs FINDINGS: Postsurgical changes of carpal arthrodesis and removal of the scaphoid fusion of the carpal bones is again noted. No acute complicating hardware features. No acute osseous finding. Osteoarthritic and degenerative changes of the carpometacarpal and radiocarpal joints is similar. IMPRESSION: No significant change in appearance when compared with 07/17/2018 left wrist radiographs. No acute complicating osseous or hardware feature. Reviewed by: Wilder Ji MD on 04/11/2020 9:17 AM PDT Approved by: Wilder Ji MD on 04/11/2020 9:17 AM PDT Station ID: [id number]
== END 2020-04-11 23:59 | disposition home or self-care (01) ==
LOC: DI.WCP 08:15
PROVIDERS: ATTEND Radiology Diagnostic Radiology
DX: S62.002D Unspecified fracture of navicular [scaphoid] bone of left wrist, subsequent encounter for fracture with routine healing (principal)

== ENCOUNTER 2020-05-01 12:59 | Outpatient (CLI) | payer MEDICAID ==
--- NOTE | 2020-05-01 16:35 | XRAY Report ---
PROCEDURE: Abdomen 1 View X-Ray INDICATIONS: KIDNEY STONES TECHNIQUE: 1 view of the abdomen were acquired. COMPARISON: CT abdomen pelvis 06/22/2019 FINDINGS: Surgical changes and devices: None. Bowel: No pneumoperitoneum. The bowel gas pattern is normal. Soft tissues: No masses; visualized solid organ contours appear normal in size. Punctate calcificati on is noted overlying the inferior right renal pole. Left kidney is obscured by overlying bowel gas. Bones: No suspicious bony abnormalities. IMPRESSION: Calcification noted within the right renal pole appearing unchanged. Additional calcific ations within both kidneys are not well visualized secondary to overlying bowel gas compared to 2019 exam. Reviewed by: Seda Penaloza MD on 05/01/2020 4:34 PM PDT Approved by: Seda Penaloza MD on 05/01/2020 4:34 PM PDT Station ID: [id number]
== END 2020-05-01 13:00 | disposition home or self-care (01) ==
LOC: DI.N 12:59
PROVIDERS: ATTEND Urology
DX: N20.0 Calculus of kidney (principal)
CPT/HCPCS: 74018

== ENCOUNTER 2020-07-27 08:29 | Outpatient (CLI) | payer MEDICAID | END 2020-07-27 08:30 | disposition critical access hospital (66) | LOC: EMS 08:29 | PROVIDERS: ATTEND Surgery | DX: M54.5 Low back pain (principal); R20.0 Anesthesia of skin | CPT/HCPCS: A0425; A0429; A0999 ==

== ENCOUNTER 2020-07-27 08:53 | Emergency (ER) | payer MEDICAID ==
[2020-07-27] MEDS ORDERED: KETOROLAC 30 MG/ML VIAL IVP STA (09:16)
[2020-07-27] MEDS ORDERED: HYDROmorphone 1 MG/ML CARPUJECT IVP STA ×2 (09:16→10:43)
--- NOTE | 2020-07-27 09:21 | ED Physician Documentation ---
PD HPI BACK PAIN - Stated complaint Stated Complaint: SCIATIC PX - Chief complaint Chief Complaint: Back Pain - History obtained from History obtained from: Patient, EMS - History of Present Illness Timing - onset: Yesterday Timing - duration: Days (1) Timing - details: Abrupt onset Pain level max: 9 Pain level now: 9 Location: Lower, Right Quality: Pain, Spasm, Sharp, Similar to prior episodes Associated symptoms: No: Fever, Weakness, Numbness, Incontinent of urine, Unable to urinate, Hematuria, Incontinent of stool Improves with: Rest Worsened by: Movement Contributing factors: Other (states fell a month ago and was seen at [facility], reportedly negative back xrays at that time. Denies any other falls.). No: Anticoagulated, Cancer, IVDA Similar symptoms before: Diagnosis (has had back pain in the past.) - Additional information Additional information: states pain radiates down the R leg. States her leg felt like it was "going to be hard when I touched it, but it wasn't hard". Review of Systems Ten Systems: 10 systems reviewed and negative Constitutional: denies: Fever, Chills Throat: denies: Sore throat Cardiac: denies: Chest pain / pressure, Palpitations Respiratory: denies: Cough GI: denies: Vomiting, Diarrhea : denies: Dysuria, Frequency, Hesitancy, Incontinent Skin: denies: Rash Musculoskeletal: denies: Neck pain, Extremity swelling Neurologic: denies: Focal weakness, Numbness, Headache PD PAST MEDICAL HISTORY - Past Medical History Cardiovascular: None Respiratory: COPD, Emphysema, Pneumonia, Shortness of breath Endocrine/Autoimmune: None GI: Colon polyps : Kidney stones HEENT: Other Psych: Anxiety, Panic attacks Musculoskeletal: Osteoarthritis, Other Derm: Psoriasis - Past Surgical History Past Surgical History: Yes General: Hiatal hernia repair Ortho: Knee replacement /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 - Present Medications Home Medications: Ambulatory Orders Medication Instructions Recorded Confirmed DULoxetine [Cymbalta] 30 mg PO Q48H 02/14/14 04/01/16 Zolpidem [Ambien] 10 mg PO QPM PRN 02/14/14 07/27/20 diazePAM [Valium] 5 mg PO TID PRN 02/14/14 07/27/20 Folic Acid 1 mg PO DAILY 03/29/16 06/22/18 Hydrochlorothiazide 25 mg PO DAILY 03/29/16 04/01/16 Tiotropium [place] [Spiriva] 1 puffs INH DAILY 03/29/16 06/22/18 Dicyclomine HCl 10 mg PO TID PRN #25 capsule 06/22/19 Famotidine 20 mg PO DAILY #30 tablet 06/22/19 Ondansetron Odt [Zofran] 4 mg TL Q6H PRN #25 tablet 06/22/19 Sucralfate [Carafate] 1 gm PO TID #30 tablet 06/22/19 Benzonatate [Tessalon Perle] 100 mg PO TID PRN #25 capsule 03/27/20 Doxycycline Monohydrate 100 mg PO BID #14 tablet 03/27/20 Hydrocodone/Acetaminophen [[employer] 1 each PO Q6H PRN #15 tablet 03/27/20 5-325 Tablet] Ipratropium [Atrovent] 0.5 mg INH Q6H #30 neb 03/27/20 dexAMETHasone [Decadron] 4 mg PO DAILY #7 tablet 03/27/20 Buspirone HCl 7.5 mg PO BID 07/27/20 07/27/20 Gabapentin [Neurontin] 600 mg PO DAILY 07/27/20 07/27/20 Montelukast Sodium [Singulair] 10 mg PO DAILY 07/27/20 07/27/20 Oxycodone HCl/Acetaminophen 1 - 2 each PO Q6H PRN #14 tablet 07/27/20 [Percocet 5-325 mg Tablet] Sertraline [Zoloft] 50 mg PO TID 07/27/20 07/27/20 Simvastatin [Zocor] 10 mg PO DAILY 07/27/20 07/27/20 - Allergies Allergies/Adverse Reactions: Allergies Allergy/AdvReac Type Severity Reaction Status Date / Time Penicillins Allergy Severe Edema Verified 07/27/20 09:50 venlafaxine HCl * Allergy Severe Kidney Verified 07/27/20 09:50 [From Effexor] failure oxycodone AdvReac Intermediate Somnolence Verified 07/27/20 09:50 - Social History Does the pt smoke?: No Smoking Status: Never smoker Does the pt drink ETOH?: No Does the pt have substance abuse?: Yes - Immunizations Immunizations: TDAP >10years/unknown - POLST Patient has POLST: No PD ED PE NORMAL - Vitals Vital signs reviewed: Yes - General General: Alert and oriented X 3, No acute distress - HEENT HEENT: Moist mucous membranes - Neck Neck: Supple, no meningeal sign - Cardiac Cardiac: RRR - Respiratory Respiratory: No respiratory distress, Clear bilaterally - Abdomen Abdomen: Soft, Non tender, Non distended - Back Back: Other (midline TTP low lumbar and paraspinal spasm R low lumbar.) - Derm Derm: Warm and dry - Extremities Extremities: Other (Normal bilateral lower extremity patellar and ankle jerk reflexes. Normal great toe extension bilaterally. 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, No motor deficit, No sensory deficit, Normal speech - Psych Psych: Normal mood, Normal affect Results - Vitals Vitals: Vital Signs - 24 hr 07/27/20 07/27/20 07/27/20 09:00 10:30 12:00 Temperature 37 C 36.6 C Heart Rate 100 91 86 Respiratory 20 20 16 Rate Blood Pressure 129/52 L 103/58 L 94/61 O2 Saturation 99 98 93 Oxygen O2 Source [] Room air O2 Source [] Nasal cannula O2 Source Room air - Labs Labs: Laboratory Tests 07/27/20 07/27/20 07/27/20 09:39 09:39 12:59 WBC 10.4 RBC 3.67 L Hgb 11.8 L Hct 35.1 L MCV 95.6 MCH 32.2 H MCHC 33.6 RDW 12.1 Plt Count 235 MPV 9.0 Neut # (Auto) 7.7 H Lymph # (Auto) 1.1 L [place] # (Auto) 1.5 H Eos # (Auto) 0.0 Baso # (Auto) 0.0 Absolute Nucleated RBC 0.00 Nucleated RBC % 0.0 Sodium 138 Potassium 3.9 Chloride 100 L Carbon Dioxide 27 Anion Gap 11.0 BUN 8 Creatinine 0.6 Estimated GFR (MDRD) 101 Glucose 110 H Calcium 8.6 Urine Color YELLOW Urine Clarity CLEAR Urine pH 6.0 Ur Specific [place] 1.020 Urine Protein NEGATIVE Urine Glucose (UA) NEGATIVE Urine Ketones NEGATIVE Urine Occult Blood TRACE-INTA Urine Nitrite NEGATIVE Urine Bilirubin NEGATIVE Urine Urobilinogen 0.2 (NORMAL) Ur Leukocyte Esterase NEGATIVE Ur Microscopic Review NOT INDICATED Urine Culture Comments NOT INDICATED - Rads (name of study) L spine CT Radiology: Prelim report reviewed, EMP read contemporaneously, See rad report PD MEDICAL DECISION MAKING - ED course Complexity details: reviewed results, re-evaluated patient, considered differential, d/w patient ED course: 64-year-old female with an L4 fracture, this appears to be approximately 1 month old. Pain well controlled in the emergency department. She is well-appearing, nontoxic. Afebrile. No neurological deficits. Ambulating well. Does have a 6 mm left ureteral stone as well, but is not having symptoms with this. Negative UA. Patient counseled regarding signs and symptoms for which I believe and urgent re-evaluation would be necessary. Patient with good understanding of and agreement to plan and is comfortable going home at this time This document was made in part using voice recognition software. While efforts are made to proofread this document, sound alike and grammatical errors may occur. IMPRESSION: There is an acute fracture involving the superior endplate of L4, with 40-50% loss of height centrally. There is a more remote appearing L3 compression deformity seen. Posterior displacement of fracture fragments can be seen at this level, with associated moderate to severe central canal narrowing. Degenerative changes are seen, which are overall most prominent at L4-L5 and L5- S1. There is an obstructing 6 mm distal left ureteral stone, with associated moderate left-sided hydroureter and hydronephrosis. Nonobstructing bilateral renal stones are also seen. Departure - Departure Disposition: 01 Home, Self Care Clinical Impression: Renal stone L4 vertebral fracture Qualifiers: Encounter type: initial encounter Fracture type: closed Fracture morphology: wedge compression Qualified Code(s): S32.040A - Wedge compression fracture of fourth lumbar vertebra, initial encounter for closed fracture Condition: Good Instructions: ED Fx Comp Vertebral, ED Stone Renal W Colic Follow-Up: Angela Stover MD [Primary Care Provider] - Within 1 week Prescriptions: Oxycodone HCl/Acetaminophen [Percocet 5-325 mg Tablet] 1 - 2 each PO Q6H PRN #14 tablet PRN Reason: pain Comments: Return if you worsen. Follow-up with your doctor for further care. You do appear to have an L4 compression fracture as well as a left-sided ureteral stone. Return especially for uncontrolled pain, fevers, vomiting.
[2020-07-27] MEDS ORDERED: LIDOCAINE-MPF 2% 6 ML in SODIUM CHLORIDE 0.9% 50 ML IV STA (10:01)
--- NOTE | 2020-07-27 10:01 | CT Report ---
PROCEDURE: LUMBAR SPINE WO INDICATIONS: low back pain s/p fall 2 weeks ago, normal xray TECHNIQUE: Noncontrast 3 mm thick sections acquired from the T12 level to the sacrum. Sagittal and coronal refo rmats were constructed. For radiation dose reduction, the following was used: automated exposure co ntrol, adjustment of mA and/or kV according to patient size. COMPARISON: None. FINDINGS: Image quality: Excellent. Bones: Seen involving the superior endplates of L3 and L4, with a likely subacute appearance at L3. The L3 level demonstrates 6 cm posterior displacement of fracture fragments. The L3 fracture demonst rates 50-60% loss of height centrally. There is an acute appearing fracture involving the superior en dplate of L4, with 1 to 2 mm posterior displacement of fracture fragments. There is 50% loss of heigh t centrally at L4. No suspicious lytic or blastic bony lesions. Central spinal caliber is of normal overall caliber. N o pars defects. Mild levoconvex scoliotic curvature is seen. T12-L1: Normal in appearance. L1-L2: Normal in appearance. L2-L3: The disc height is well-preserved. Moderate disc bulge is seen. Moderate facet hypertrophy is seen. Moderate bilateral neural foraminal narrowing is seen. There is at least moderate centra l canal narrowing seen, with moderate to severe central canal narrowing, which is caused by the poste rior displacement of fracture fragments. L3-L4: The disc height is well-preserved. At least moderate disc bulge is seen, which is eccentric to the left. There is moderate to prominent right-sided and moderate left-sided facet hypertrophy see n. There is at least moderate bilateral neuroforaminal narrowing seen. Moderate central canal narrow ing is seen. L4-L5: The disc height is well-preserved. At least moderate disc bulge is seen, with a central disc protrusion. There is moderate to prominent right-sided and moderate left-sided facet hypertrophy see n. Associated hypertrophy of the ligamentum flavum can be seen. There is moderate to severe bilater al neuroforaminal narrowing seen, left worse than right. At least moderate central canal narrowing is seen. L5-S1: Moderate to severe loss of disc height is seen on the right side. Vacuum disc phenomenon is seen at this level. Endplate irregularity and sclerosis can be seen. Posteriorly directed endplat e osteophytes are seen. Moderate facet hypertrophy is seen. Moderate to severe bilateral neurofo raminal narrowing can be seen. Mild central canal narrowing is seen. Soft tissues: There is an obstructing distal left ureteral stone that is partially seen and measures 6 cm, as on series 3 image 113. There is associated moderate left-sided hydroureter and hydronephros is. Multiple nonobstructing kidney stones are seen, which measure up to 4 mm on the right and up to 2 mm on the left. No right-sided hydronephrosis is seen. Simple appearing exophytic moderate density right renal cysts are seen. Simple appearing liver cysts are seen. Liver calcification can be seen anteriorly, as on series 3 ashley ge 19. No retroperitoneal masses or hematomas. Visualized aorta is normal in caliber. Bariatric surgery ag ain be seen. Diverticulosis can be seen, without cece findings of active diverticulitis. IMPRESSION: There is an acute fracture involving the superior endplate of L4, with 40-50% loss of he ight centrally. There is a more remote appearing L3 compression deformity seen. Posterior displacement of fracture fr agments can be seen at this level, with associated moderate to severe central canal narrowing. Degenerative changes are seen, which are overall most prominent at L4-L5 and L5-S1. There is an obstructing 6 mm distal left ureteral stone, with associated moderate left-sided hydroure ter and hydronephrosis. Nonobstructing bilateral renal stones are also seen. Incidental note is made of: Simple appearing liver and renal cysts Liver calcification can be seen. Bariatric surgery. Diverticulosis is seen, yet without findings of active diverticulitis. Note: Case discussed by telephone with Dr. Salazar at 8:58 AM on [place] time on 07/27/2020. Reviewed by: Vargas Pollard MD on 07/27/2020 8:59 AM AKST Approved by: Vargas Pollard MD on 07/27/2020 8:59 AM AKST Station ID: [id number]
[2020-07-27 10:06] LABS: BASOPHILS % (AUTO) 0.4 %; EOSINOPHILS % (AUTO) 0.4 %; HGB - HEMOGLOBIN 11.8 g/dL (12.0-16.0); LYMPHOCYTES # (AUTO) 1.1 10^3/uL (1.5-3.5); LYMPHOCYTES % (AUTO) 10.7 %; MEAN CORPUSCULAR HEMOGLOBIN 32.2 pg (27.0-31.0); MEAN CORPUSCULAR HGB CONC 33.6 g/dL (32.0-36.0); MEAN CORPUSCULAR VOLUME 95.6 fL (81.0-99.0); MONOCYTES # (AUTO) 1.5 10^3/uL (0.0-1.0); MONOCYTES % (AUTO) 14.2 %; NEUTROPHILS # (AUTO) 7.7 10^3/uL (1.5-6.6); NEUTROPHILS % (AUTO) 73.6 %; PLT - PLATELET COUNT 235 10^3/uL (130-450); RED BLOOD COUNT 3.67 10^6/uL (4.20-5.40); RED CELL DISTRIBUTION WIDTH 12.1 % (12.0-15.0); WHITE BLOOD COUNT 10.4 x10^3/uL (4.8-10.8)
[2020-07-27 10:19] LABS: CALCIUM 8.6 mg/dL (8.5-10.3); CREATININE 0.6 mg/dL (0.4-1.0)
[2020-07-27] MEDS ORDERED: HYDROmorphone 1 MG/ML CARPUJECT IVP SCH (10:40)
[2020-07-27 13:05] LABS: BILIRUBIN,URINE NEGATIVE (NEGATIVE); GLUCOSE, URINE (UA) NEGATIVE (NEGATIVE); KETONES,URINE (UA) NEGATIVE (NEGATIVE); LEUKOCYTE ESTERASE, URINE NEGATIVE (NEGATIVE); NITRITE,URINE NEGATIVE (NEGATIVE); OCCULT BLOOD,URINE TRACE-INTA (NEGATIVE); PROTEIN,URINE NEGATIVE (NEGATIVE); UROBILINOGEN,URINE 0.2 (NORMAL) E.U./dL (NORMAL)
[2020-07-27 13:06] LABS: CLARITY,URINE CLEAR (CLEAR)
[2020-07-27] MEDS ORDERED: HYDROmorphone 1 MG/ML CARPUJECT IM STA (14:53)
[2020-07-27] MEDS ORDERED: methocarbamoL 500 MG TABLET PO STA (16:21)
[2020-07-27] MEDS ORDERED: oxyCODONE 5 MG TABLET PO STA (16:21)
[2020-07-27 17:14] VITALS: BP 126/79
== END 2020-07-27 17:39 | disposition home or self-care (01) ==
LOC: EDUNIT# → ED 08:53
DX: S32.040A Wedge compression fracture of fourth lumbar vertebra, initial encounter for closed fracture (principal); W19.XXXA Unspecified fall, initial encounter; N13.2 Hydronephrosis with renal and ureteral calculous obstruction
CPT/HCPCS: 36415; 51701; 72131; 80048; 81003; 85025; 96372; 96374; 96375; 99284; A9270; J1170; J7040; 81001; 87086

== ENCOUNTER 2020-12-06 10:57 | Outpatient (CLI) | payer MEDICAID ==
--- NOTE | 2020-12-07 07:47 | Mammography Report ---
BILATERAL DIGITAL SCREENING MAMMOGRAM 3D/2D: 12/06/2020 CLINICAL: Routine screening. Comparison is made to exams dated: 04/20/2018 mammogram and 03/29/2016 mammogram - [facility]. The tissue of both breasts is predominantly fatty. No significant masses, calcifications, or other findings are seen in either breast. There has been no significant interval change. IMPRESSION: NEGATIVE There is no mammographic evidence of malignancy. A 1 year screening mammogram is recommended. This exam was interpreted at Station ID: [id number]. NOTE: For mammograms, a report in lay terms will be sent to the patient. Approximately 15% of breast malignancies will not be visualized mammographically. In the management of a palpable breast mass, a negative mammogram must not discourage biopsy of a clinically suspicious lesion. Electronically Signed By: Wilder Ji M.D., jr/joãorad:12/06/2020 15:55:41 ACR BI-RADS Category 1: Negative 3341F PARENCHYMAL PATTERN: (F) - The breast(s) demonstrate(s) diffuse fatty replacement. BI-RADS CATEGORY: (1) - 1 RECOMMENDATION: (ANNUAL) - Recommend routine annual screening mammography. [id number] 1 year screening LATERALITY: (B)
== END 2020-12-06 10:58 | disposition home or self-care (01) ==
LOC: DI.N 10:57
PROVIDERS: ATTEND Internal Medicine
DX: Z12.31 Encounter for screening mammogram for malignant neoplasm of breast (principal)

== ENCOUNTER 2020-12-12 11:42 | Outpatient (CLI) | payer MEDICAID ==
--- NOTE | 2020-12-12 13:15 | XRAY Report ---
PROCEDURE: Wrist 4 View LT INDICATIONS: LEFT WRIST SCAPHOID FRACTURE TECHNIQUE: 3 views of the wrist were acquired. COMPARISON: 04/03/2020 FINDINGS: Bones: Redemonstration of post surgical changes of prior resection of the scaphoid. There are degene rative changes of the residual proximal radiocarpal joint. Status post arthrodesis of the left carpal bones with increased lucency surrounding the surgical hardware and stable. There is incomplete osseo us fusion across the fused segments. Moderate background degenerative changes of the left hand and wr ist, not significantly changed. No acute fractures or dislocations. No suspicious bony lesions. Soft tissues: No suspicious soft tissue calcifications. IMPRESSION: Status post scaphoid resection and arthrodesis of the carpal bones. There are radiographic findings s uggestive of hardware loosening as evidenced by increased lucency surrounding the surgical hardware. Additionally, there is incomplete ossification across the fused carpal bones. Consider further evalua tion with nuclear medicine bone scan. Stable appearance of moderate background polyarticular osteoarthritic changes of the left hand and wr ist. Reviewed by: Checo Kam MD on 12/12/2020 1:14 PM PDT Approved by: Checo Kam MD on 12/12/2020 1:14 PM PDT Station ID: [id number]
== END 2020-12-12 11:43 | disposition home or self-care (01) ==
LOC: DI.N 11:42
PROVIDERS: ATTEND Physician Assistant Surgical
DX: M19.042 Primary osteoarthritis, left hand (principal); M19.032 Primary osteoarthritis, left wrist; R93.6 Abnormal findings on diagnostic imaging of limbs

== ENCOUNTER 2020-12-26 09:32 | Outpatient (CLI) | payer MEDICAID ==
--- NOTE | 2020-12-26 15:18 | DEXA Report ---
PROCEDURE: Dexa Spine and/or Hip INDICATIONS: OTH DISORDER OF BONE DENSITY AND STRUCTURE TECHNIQUE: Dual energy x-ray absorptiometry (DXA) was performed on a [employer] System. Regions measur ed are the AP Spine, femoral neck, and if needed forearm. COMPARISON: 11/14/2016. FINDINGS: Lumbar Spine: Bone Mineral Density 0.837 g/cm/cm,T score -2.7, osteoporosis Left Hip: Bone Mineral Density 0.916 g/cm/cm,T score -0.7, normal Left Femoral Neck: Bone Mineral Density 0.850 g/cm/cm, T score -1.4, osteopenia (T score greater or equal to -1.0: NORMAL) (T score from -1.1 to -2.4: OSTEOPENIA) (T score less than or equal to -2.5 to: OSTEOPOROSIS) Impression: Osteoporosis. Bone mineral density has decreased 3.4% compared to 11/14/2016. Patients with diagnosis of osteoporosis or osteopenia should have regular bone mineral density assess ment. For those eligible for Medicare, routine testing is allowed once every 2 years. Testing frequ ency can be increased for patients who have rapidly progressing disease or for those who are receivin g medical therapy to restore bone mass. Reviewed by: Airam Davis MD, PhD on 12/26/2020 3:16 PM PDT Approved by: Airam Davis MD, PhD on 12/26/2020 3:16 PM PDT Station ID: [id number]
== END 2020-12-26 09:33 | disposition home or self-care (01) ==
LOC: DI 09:32
PROVIDERS: ATTEND Internal Medicine
DX: M81.0 Age-related osteoporosis without current pathological fracture (principal)

== ENCOUNTER 2021-02-02 | Outpatient (CLI) | payer MEDICAID | END 2021-02-02 17:01 | disposition short-term general hospital (02) | CPT/HCPCS: A0425; A0427; A0999 ==

== ENCOUNTER 2021-06-28 13:48 | Outpatient (CLI) | payer MEDICAID ==
--- NOTE | 2021-06-28 14:48 | XRAY Report ---
PROCEDURE: Wrist 3 View LT INDICATIONS: S/P REVISION L SCAPHOID 4 CORNER FUSION TECHNIQUE: 3 views of the wrist were acquired. COMPARISON: December 12, 2020 FINDINGS: BONES: No acute, displaced fracture. Interval revision of the patient's carpal hardware traversing pr oximal and distal carpal bones. Deficiency of the scaphoid, compatible with resection. No surrounding hardware lucency to suggest loosening. Redemonstrated radiocarpal joint space loss with osteophytosi s. SOFT TISSUES: No focal abnormality. IMPRESSION: 1.No hardware compromise appreciated. Reviewed by: Romel Tong MD on 06/28/2021 2:47 PM PDT Approved by: Romel Tong MD on 06/28/2021 2:47 PM PDT Station ID: [id number]
--- NOTE | 2021-06-28 14:50 | XRAY Report ---
PROCEDURE: Finger(s) RT INDICATIONS: RIGHT THUMB BASILAR JOINT PAIN TECHNIQUE: AP hand, 2 views of the first finger(s) acquired. COMPARISON: None available. FINDINGS: Bones: No fractures or dislocations. Mild joint space loss of the first interphalangeal and metacarp ophalangeal articulations with degenerative change of the accessory ossicles. No suspicious bony lesi ons. Soft tissues: No suspicious soft tissue calcifications. IMPRESSION: No acute osseous abnormality. Reviewed by: Romel Tong MD on 06/28/2021 2:49 PM PDT Approved by: Romel Tong MD on 06/28/2021 2:49 PM PDT Station ID: [id number]
== END 2021-06-28 13:49 | disposition home or self-care (01) ==
LOC: DI.N 13:48
PROVIDERS: ATTEND Physician Assistant Surgical
DX: M25.541 Pain in joints of right hand (principal); M19.132 Post-traumatic osteoarthritis, left wrist; S62.002S Unspecified fracture of navicular [scaphoid] bone of left wrist, sequela

== ENCOUNTER 2021-08-23 12:56 | Outpatient (CLI) | payer MEDICAID ==
--- NOTE | 2021-08-23 16:17 | XRAY Report ---
PROCEDURE: Wrist 3 View LT INDICATIONS: SNAC TECHNIQUE: 3 views of the wrist were acquired. COMPARISON: 06/28/2021 FINDINGS: Bones: Again noted is prior resection of scaphoid and surgical screw seen within multiple carpal bone s unchanged from prior study. There is questionable increased radiolucency surrounding surgical screw s in distal carpal row concerning for loosening. No acute fractures or dislocations. Osteoarthritic changes are noted throughout wrist joints. No suspicious bony lesions. Soft tissues: No suspicious soft tissue calcifications. IMPRESSION: Postsurgical changes in the carpal bones with suggestion of hardware loosening involving surgical scr ews in distal carpal bones. Osteoarthritis throughout wrist joints. Prior resection of scaphoid. No a cute fracture or dislocation. Reviewed by: Geo Weber MD on 08/23/2021 4:15 PM PST Approved by: Geo Weber MD on 08/23/2021 4:15 PM PST Station ID: [id number]
== END 2021-08-23 12:57 | disposition home or self-care (01) ==
LOC: DI.N 12:56
PROVIDERS: ATTEND Physician Assistant Surgical
DX: M19.132 Post-traumatic osteoarthritis, left wrist (principal); S62.002S Unspecified fracture of navicular [scaphoid] bone of left wrist, sequela; T84.038A Mechanical loosening of other internal prosthetic joint, initial encounter

== ENCOUNTER 2021-12-31 08:27 | Day surgery (SDC) | payer MEDICARE, MEDICAID ==
[2021-12-31] MEDS ORDERED: LACTATED RINGERS 1,000 ML IV ONE (08:49)
[2021-12-31] MEDS ORDERED: CEFAZOLIN SODIUM IN 0.9 % NACL 0 GM/0 ML BAG IV ONE (09:09)
[2021-12-31] MEDS ORDERED: LIDOCAINE MPF 2%-EPI 1:200000 20 ML VIAL ONE (10:10)
[2021-12-31] MEDS ORDERED: BUPIVACAINE 0.25% PF 30 ML VIAL ONE (10:10)
[2021-12-31] MEDS ORDERED: MIDAZOLAM 2 MG/2 ML VIAL ONE (10:21)
[2021-12-31] MEDS ORDERED: fentaNYL 100 MCG/2 ML VIAL ONE (10:21)
[2021-12-31] MEDS ORDERED: CLINDAMYCIN 900 MG/50 ML 50 ML IV ONE (10:33)
[2021-12-31] MEDS ORDERED: NALOXONE 0.4 MG/ML VIAL IVP PRN (10:35)
[2021-12-31] MEDS ORDERED: ONDANSETRON 4 MG/2 ML VIAL IVP PRN ×2 (10:35→11:10)
[2021-12-31] MEDS ORDERED: HYDROmorphone 0.5 MG/0.5 ML SYRINGE IVP PRN (10:35)
[2021-12-31] MEDS ORDERED: ATROPINE ABBOJECT 1 MG/10 ML SYRINGE IVP PRN (10:35)
[2021-12-31] MEDS ORDERED: MORPHINE 2 MG/ML CARPUJECT IVP PRN (10:35)
[2021-12-31] MEDS ORDERED: ePHEDrine 50 MG/ML VIAL IVP PRN (10:35)
[2021-12-31] MEDS ORDERED: fentaNYL 100 MCG/2 ML VIAL IVP PRN (10:35)
[2021-12-31] MEDS ORDERED: ONDANSETRON 4 MG/2 ML VIAL ONE (10:44)
[2021-12-31] MEDS ORDERED: DEXAMETHASONE 4 MG/ML VIAL ONE (10:44)
--- NOTE | 2021-12-31 10:51 | ANESTHESIA ---
Pre-Anesthesia VS, & Labs - Diagnosis L nipple invasion - Procedure L nipple biopsy Vital Signs: Temp Pulse Resp BP Pulse Ox 37.1 C 84 18 126/81 H 96 12/31/21 08:49 12/31/21 08:49 12/31/21 08:49 12/31/21 08:49 12/31/21 08:49 Height: 5 ft 7 in Weight (kg): 101.9 kg Body Mass Index: 35.2 BMI Classification: Obese - NPO >8 hours - Is Patient ?: No Home Medications and Allergies Home Medications: Ambulatory Orders Amlodipine Besylate [Norvasc] 2.5 mg PO DAILY 12/25/21 Colestipol HCl [Colestid] 1 gm PO BID 12/25/21 Pregabalin [Lyrica] 150 mg PO BID 12/25/21 Active Medications Atropine Sulfate (Atropine Abboject 1 Mg/10 Ml Syringe) 0.5 mg IVP Q5M PRN PRN Reason: Bradycardia Stop: 01/01/22 10:35 Ephedrine Sulfate (Ephedrine 50 Mg/Ml Vial) 10 mg IVP Q5M PRN PRN Reason: HYPOTENSION Stop: 01/01/22 10:35 Fentanyl (Fentanyl 100 Mcg/2 Ml Vial) 25 - 50 mcg IVP Q5M PRN PRN Reason: BREAKTHROUGH PAIN (2nd Choice) Stop: 01/01/22 10:35 Hydromorphone HCl (Hydromorphone 0.5 Mg/0.5 Ml Syringe) 0.2 - 0.6 mg IVP Q5M PRN PRN Reason: PAIN (First Choice) Stop: 01/01/22 10:35 Lactated Ringer's (Lr) 1,000 mls @ 100 mls/hr IV .Q10H FELICIA Stop: 12/31/21 20:59 Morphine Sulfate (Morphine 2 Mg/Ml Carpuject) 2 - 4 mg IVP Q5M PRN PRN Reason: PAIN (3rd Choice) Stop: 01/01/22 10:35 Naloxone HCl (Naloxone 0.4 Mg/Ml Vial) 0.1 mg IVP Q2M PRN PRN Reason: RESP RATE <8 Stop: 01/01/22 10:35 Ondansetron HCl (Ondansetron 4 Mg/2 Ml Vial) 4 mg IVP ONCE PRN PRN Reason: N/V (First Choice) Stop: 01/01/22 10:35 DULoxetine [Cymbalta] 30 mg PO DAILY 02/14/14 diazePAM [Valium] 5 mg PO TID PRN 02/14/14 Buspirone HCl 7.5 mg PO BID 07/27/20 Montelukast Sodium [Singulair] 10 mg PO DAILY 07/27/20 Sertraline [Zoloft] 50 mg PO TID 07/27/20 Simvastatin [Zocor] 10 mg PO QPM 07/27/20 Amlodipine Besylate [Norvasc] 2.5 mg PO DAILY 12/25/21 Colestipol HCl [Colestid] 1 gm PO BID 12/25/21 Pregabalin [Lyrica] 150 mg PO BID 12/25/21 Allergies/Adverse Reactions: Allergies Allergy/AdvReac Type Severity Reaction Status Date / Time Penicillins Allergy Severe Edema Verified 12/31/21 08:39 venlafaxine HCl * Allergy Severe Kidney Verified 12/31/21 08:39 [From Effexor] failure Anes History & Medical History - Anesthetic History Anesthesia Complications: reports: No previous complications Family history of Anesthesia Complications: Denies Family history of Malignant Hyperthermia: Denies - Medical History Cardiovascular: reports: Hypertension, High cholesterol Pulmonary: reports: COPD, Pneumonia, Shortness of breath, Sleep apnea, CPAP use Gastrointestinal: reports: Colon polyps Urinary: reports: Kidney stones Musculoskeletal: reports: Osteoarthritis Endocrine/Autoimmune: reports: None Skin: reports: Psoriasis Smoking Status: Never smoker - Surgical History General: reports: Hiatal hernia repair, Colonoscopy Urologic: reports: Ureterolithotomy (stones) Gynecologic: reports: Hysterectomy Orthopedic: reports: Knee replacement Exam General: Alert, Oriented x3, Cooperative Dental: Dentures full Upper, Dentures full Lower Mouth Openin Fingerbreadth Neck Mobility: Normal Mallampati classification: II Thyromental Distance: 4-6 cm Respiratory: Lungs clear Cardiovascular: Regular rate Plan Anesthesia Type: General Consent for Procedure(s) Verified and Reviewed: Yes Code Status: Attempt Resuscitation ASA classification: 2-Mild systemic disease Is this case an emergency?: No
[2021-12-31] MEDS ORDERED: BUPIVACAINE 0.25% PF 30 ML VIAL SUBQ ONE ×2 (10:55)
[2021-12-31] MEDS ORDERED: LIDOCAINE MPF 2%-EPI 1:200000 20 ML VIAL SUBQ ONE ×2 (10:55)
[2021-12-31] MEDS ORDERED: LACTATED RINGERS 1,000 ML IV SCH (11:00)
[2021-12-31] MEDS ORDERED: oxyCODONE 5 MG TABLET PO PRN (11:10)
[2021-12-31] MEDS ORDERED: IBUPROFEN 600 MG TABLET PO PRN (11:10)
[2021-12-31] MEDS ORDERED: ACETAMINOPHEN 325 MG TABLET PO PRN (11:10)
--- NOTE | 2021-12-31 11:10 | OPERATIVE REPORT ---
Operative Report - General Procedure Date: 12/31/21 Planned Procedure: Left posterior nipple biopsy with nipple reconstruction. Pre-Op Diagnosis: New inversion of left nipple Procedure Performed: Left open nipple biopsy with reconstruction. Post Op Diagnosis: New left nipple inversion - Procedure Note Primary Surgeon: Che Anesthesia Provider: [place] Anesthesia Technique: General LMA Pathology: Retroareolar tissue oriented and submitted to pathology in formalin IV Fluids (mL): 600 Estimated Blood Loss (mL): 2 Findings: Grossly normal appearing tissue Complications: None apparent - Other Other Information/Narrative: After obtaining informed consent, the patient is brought to the operating room and placed in the supine position on the operating table. Following successful induction of general endotracheal anesthesia, appropriate padding of all bony prominences, and placement of appropriate monitors, the left breast is prepped and draped in the standard surgical fashion. A timeout was held per scope protocol. All elements of the surgical safety checklist were followed before, during, and after the procedure. I began by using a marking pen to sage the lateral limit of the areola.The entire nipple areolar complex was then infiltrated with a mixture of local anesthetics create a field block. A 15 blade scalpel was used at the edge of th e nipple areolar complex and this tissue was lifted medially revealing a very tightly retracted central portion posterior to the nipple itself. This tissue was carefully dissected off of the posterior surface of the nipple which had been tightly inverted. The area immediately posterior to the nipple was marked with a double suture. Dissection continued to remove an approximately 2 x 3 centimeter section marking the superior and lateral edges as well. This was passed from the table and placed in formalin. The wound was then checked for hemostasis. No additional bleeding was appreciated. A pursestring suture was placed at the edge of the projecting portion of the nipple so that we could recreate that projection. It was sewn into place recreating the natural form of the left nipple areolar complex. The wound was then checked once again for hemostasis and closed in 2 layers with Vicryl and Monocryl sutures. All sponge, needle, and instrument counts were correct at the conclusion of the case. The patient was allowed to wake from anesthesia without difficulty and taken to the postanesthesia care unit in good condition.
[2021-12-31] MEDS ORDERED: LACTATED RINGERS 400 ML IV ONE (11:16)
--- NOTE | 2021-12-31 12:00 | ANESTHESIA POST OP EVALUATION ---
Anesthesia Post Eval - Post Anesthesia Eval Vitals: Last Vital Signs Temp 36.6 C 12/31/21 11:48 Pulse 86 12/31/21 11:48 Resp 12 12/31/21 11:48 BP 100/80 12/31/21 11:48 Pulse Ox 91 L 12/31/21 11:48 CV Function Including HR & BP: Stable Pain Control: Satisfactory Nausea & Vomiting: Negative Mental Status: Baseline Respiratory Status: Airway Patent Hydration Status: Satisfactory Anesthesia Complications: None
[2021-12-31] MEDS ORDERED: oxyCODONE 5 MG TABLET ONE (12:01)
[2021-12-31 13:04] VITALS: BP 132/85
== END 2021-12-31 08:28 | disposition home or self-care (01) ==
LOC: SDS 08:27
PROVIDERS: ATTEND Surgery
PROC: 0HQX0ZZ Repair Left Nipple, Open Approach (ICD-10-PCS; 2021-12-31)
PROC: 0HBX0ZX Excision of Left Nipple, Open Approach, Diagnostic (ICD-10-PCS; principal; 2021-12-31 09:30)
DX: N64.59 Other signs and symptoms in breast (principal); N60.22 Fibroadenosis of left breast; E66.9 Obesity, unspecified; Z68.35 Body mass index [BMI] 35.0-35.9, adult; J44.9 Chronic obstructive pulmonary disease, unspecified; G47.30 Sleep apnea, unspecified
CPT/HCPCS: 19101; 19355; A9270; J7120

== ENCOUNTER 2022-03-02 11:04 | Outpatient (CLI) | payer MEDICARE, MEDICAID ==
--- NOTE | 2022-03-02 15:57 | CT Report ---
PROCEDURE: LOWER EXTREMITY WO - RT INDICATIONS: RIGHT FOOT PAIN TECHNIQUE: Noncontrast 3-mm axial sections acquired from the distal tibial shaft to the talar dome, with coronal and sagittal reformats. For radiation dose reduction, the following was used: automated exposure c ontrol, adjustment of mA and/or kV according to patient size. COMPARISON: None. FINDINGS: Image quality: Excellent. Bones: Normal bone mineralization present. No evidence of lytic or blastic osseous lesion. No fractu re. There is first tarsometatarsal joint space and narrowing and small marginal osteophyte noted. Rem ainder of the joint spaces are preserved. Soft tissues: Unremarkable Impression: Moderate first tarsometatarsal osteoarthritis. No fracture or lytic lesion. Reviewed by: Shaheen Don MD on 03/02/2022 2:56 PM AKDT Approved by: Shaheen Don MD on 03/02/2022 2:56 PM AKDT Station ID: [id number]
== END 2022-03-02 11:05 | disposition home or self-care (01) ==
LOC: DI 11:04
PROVIDERS: ATTEND Internal Medicine
DX: M19.071 Primary osteoarthritis, right ankle and foot (principal)

== ENCOUNTER 2022-05-13 08:00 | Outpatient (CLI) | payer MEDICARE, MEDICAID ==
--- NOTE | 2022-05-14 09:44 | XRAY Report ---
PROCEDURE: Ankle 3 View LT INDICATIONS: Ankle fracture TECHNIQUE: 3 views of the ankle were acquired. COMPARISON: 05/08/2022 FINDINGS: Left fibular tip avulsion fracture is unchanged. Remaining bones intact. No ankle joint effusion. IMPRESSION: Unchanged left fibular tip avulsion fracture. Reviewed by: Wilder Ji MD on 05/14/2022 9:43 AM PDT Approved by: Wilder Ji MD on 05/14/2022 9:43 AM PDT Station ID: [id number]
--- NOTE | 2022-05-14 10:01 | XRAY Report ---
PROCEDURE: Tib/Fib LT INDICATIONS: Ankle fracture TECHNIQUE: 2 views of the tibia and fibula were acquired. COMPARISON: None. FINDINGS: Partially visualized left total knee arthroplasty hardware. Remote fracture of the proximal fibular d iaphysis with mature bridging bony callus. Left fibular tip avulsion fracture redemonstrated. No chad tional fracture. IMPRESSION: Left fibular tip avulsion fracture. No additional acute or subacute fracture. Remote proximal fibular diaphyseal fracture. Reviewed by: Wilder Ji MD on 05/14/2022 10:00 AM PDT Approved by: Wilder Ji MD on 05/14/2022 10:00 AM PDT Station ID: [id number]
== END 2022-05-13 23:59 | disposition home or self-care (01) ==
LOC: DI.WOS 08:00
PROVIDERS: ATTEND Physician Assistant
DX: S82.832D Other fracture of upper and lower end of left fibula, subsequent encounter for closed fracture with routine healing (principal); S82.402D Unspecified fracture of shaft of left fibula, subsequent encounter for closed fracture with routine healing; Z96.652 Presence of left artificial knee joint

== ENCOUNTER 2022-06-03 11:54 | Outpatient (CLI) | payer MEDICARE, MEDICAID | END 2022-06-03 11:55 | disposition critical access hospital (66) | LOC: EMS 11:54 | DX: R53.83 Other fatigue (principal) | CPT/HCPCS: A0425; A0427 ==

== ENCOUNTER 2022-06-03 12:13 | Emergency (ER) | payer MEDICARE, MEDICAID ==
[2022-06-03 12:42] LABS: BASOPHILS % (AUTO) 0.3 %; HCT - HEMATOCRIT 40.5 % (37.0-47.0); HGB - HEMOGLOBIN 14.5 g/dL (12.0-16.0); LYMPHOCYTES # (AUTO) 0.9 10^3/uL (1.5-3.5); LYMPHOCYTES % (AUTO) 10.4 %; MEAN CORPUSCULAR HEMOGLOBIN 32.2 pg (27.0-31.0); MEAN CORPUSCULAR HGB CONC 35.8 g/dL (32.0-36.0); MEAN CORPUSCULAR VOLUME 89.8 fL (81.0-99.0); MEAN PLATELET VOLUME 9.4 fL (7.9-10.8); MONOCYTES # (AUTO) 1.4 10^3/uL (0.0-1.0); MONOCYTES % (AUTO) 15.9 %; NEUTROPHILS # (AUTO) 6.6 10^3/uL (1.5-6.6); NEUTROPHILS % (AUTO) 72.8 %; PLT - PLATELET COUNT 284 10^3/uL (130-450); RED BLOOD COUNT 4.51 10^6/uL (4.20-5.40); RED CELL DISTRIBUTION WIDTH 13.5 % (12.0-15.0)
--- NOTE | 2022-06-03 12:43 | ED Physician Documentation ---
PD HPI DYSPNEA - Stated complaint Stated Complaint: SOA - Chief complaint Chief Complaint: Resp - History obtained from History obtained from: Patient, EMS - Additional information Additional information: Patient is a 66-year-old female with a history of COPD presenting for evaluation of shortness of air and weakness. She reports always having some shortness of air but has been feeling worsening symptoms since last Friday. She denies change to her cough. She reports her symptoms are worse with exertion but states that her Primary symptom is actually weakness and not the shortness of air. She denies associated syncope, chest pain, Abdominal pain, vomiting, diarrhea or dysuria. She denies back pain. She does have a toe fracture that she sustained 2 to 3 weeks ago but has been able to ambulate with her walker. She denies any recent head injuries. She does not take a blood thinner. Review of Systems Constitutional: denies: Fever Nose: denies: Congestion Throat: denies: Sore throat Cardiac: denies: Chest pain / pressure, Palpitations Respiratory: reports: Dyspnea GI: denies: Abdominal Pain, Vomiting : denies: Dysuria Musculoskeletal: denies: Extremity pain Neurologic: reports: Generalized weakness. 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: Hysterectomy - Present Medications Home Medications: Ambulatory Orders Medication Instructions Recorded Confirmed DULoxetine [Cymbalta] 30 mg PO DAILY 02/14/14 12/25/21 diazePAM [Valium] 5 mg PO TID PRN 02/14/14 12/31/21 Ipratropium [Atrovent] 0.5 mg INH Q6H #30 neb 03/27/20 12/31/21 Buspirone HCl 7.5 mg PO BID 07/27/20 12/25/21 Montelukast Sodium [Singulair] 10 mg PO DAILY 07/27/20 12/25/21 Sertraline [Zoloft] 50 mg PO TID 07/27/20 12/25/21 Simvastatin [Zocor] 10 mg PO QPM 07/27/20 12/31/21 Amlodipine Besylate [Norvasc] 2.5 mg PO DAILY 12/25/21 12/25/21 Colestipol HCl [Colestid] 1 gm PO BID 12/25/21 12/25/21 Pregabalin [Lyrica] 150 mg PO BID 12/25/21 12/25/21 Docusate Sodium 100Mg Capsule 200 mg PO DAILY #10 cap 12/31/21 [Colace 100Mg Capsule] oxyCODONE [Roxicodone] 5 mg PO Q4-6H PRN #7 tablet 12/31/21 - Allergies Allergies/Adverse Reactions: Allergies Allergy/AdvReac Type Severity Reaction Status Date / Time Penicillins Allergy Severe Edema Verified 06/03/22 12:17 venlafaxine HCl * Allergy Severe Kidney Verified 06/03/22 12:17 [From Effexor] failure - Social History Does the pt smoke?: No Smoking Status: Never smoker Does the pt drink ETOH?: No Does the pt have substance abuse?: Yes - Immunizations Immunizations: TDAP >10years/unknown - POLST Patient has POLST: No PD ED PE NORMAL - General General: Alert and oriented X 3, No acute distress, Well developed/nourished - HEENT HEENT: Atraumatic, Moist mucous membranes - Neck Neck: Supple, no meningeal sign - Cardiac Cardiac: RRR, No murmur, Strong equal pulses - Respiratory Respiratory: No respiratory distress, Clear bilaterally - Abdomen Abdomen: Normal bowel sounds, Soft, Non tender, Non distended - Derm Derm: Warm and dry - Extremities Extremities: No edema, No calf tenderness / cord, Other (Faint bruising to left foot) - Neuro Neuro: Alert and oriented X 3, 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 No: ST elevation c/w ischemia - Labs Labs: Laboratory Tests 06/03/22 06/03/22 06/03/22 12:31 12:31 12:31 WBC 9.0 RBC 4.51 Hgb 14.5 Hct 40.5 MCV 89.8 MCH 32.2 H MCHC 35.8 RDW 13.5 Plt Count 284 MPV 9.4 Neut # (Auto) 6.6 Lymph # (Auto) 0.9 L [place] # (Auto) 1.4 H Eos # (Auto) 0.0 Baso # (Auto) 0.0 Absolute Nucleated RBC 0.00 Nucleated RBC % 0.0 D-Dimer 257.3 H Sodium 137 Potassium 3.1 L Chloride 101 Carbon Dioxide 22 Anion Gap 14.0 H BUN 19 Creatinine 0.8 Estimated GFR (MDRD) 72 L Glucose 97 Calcium 9.2 Magnesium Total Bilirubin 1.4 H AST 55 H ALT 30 Alkaline Phosphatase 43 Total Protein 7.8 Albumin 4.4 Globulin 3.4 Albumin/Globulin Ratio 1.3 06/03/22 12:31 WBC RBC Hgb Hct MCV MCH MCHC RDW Plt Count MPV Neut # (Auto) Lymph # (Auto) [place] # (Auto) Eos # (Auto) Baso # (Auto) Absolute Nucleated RBC Nucleated RBC % D-Dimer Sodium Potassium Chloride Carbon Dioxide Anion Gap BUN Creatinine Estimated GFR (MDRD) Glucose Calcium Magnesium 2.4 Total Bilirubin AST ALT Alkaline Phosphatase Total Protein Albumin Globulin Albumin/Globulin Ratio PD MEDICAL DECISION MAKING - ED course Complexity details: reviewed results, re-evaluated patient, d/w patient ED course: Patient presenting for evaluation of generalized weakness. Shortness of breath does not appear to be the primary concern for her and she reports weakness as her Main complaint. Patient has no focal findings on exam to suggest stroke, intracranial process. Her vital signs are stable and she does not appear septic. Lung sounds are clear.No chest pain to suggest ACS. Labs obtained including D-dimer given recent foot fracture. D dimer negative per age adjusted criteria. Potassium was slightly low which was replenished orally. The patient reports feeling slightly better after IV fluids. On further questioning she reports having decreased appetite recently. Patient encouraged to have close follow-up with her primary care doctor. No events noted on monitor. Patient waited in the ED for some time for her caregiver and continued to have normal vital signs and was resting comfortably with no further complaints. Departure - Departure Disposition: 01 Home, Self Care Clinical Impression: Generalized weakness, Hypokalemia Condition: Stable Instructions: ED Weakness [facility] Follow-Up: Angela Stover MD [Primary Care Provider] - Comments: The exact cause of your symptoms is unclear. Your EKG showed a normal rhythm and your Vital signs were all normal. Your Electrolytes were checked and your potassium was slightly low. You were given a potassium pill. Please make sure that you are eating and hydrating yourself. I would also encourage you to call your primary care doctor for close follow-up. If you have any worsening symptoms or any new symptoms please consider return to the emergency department. Discharge Date/Time: 06/03/22 16:07
[2022-06-03 12:48] LABS: ALBUMIN 4.4 g/dL (3.2-5.5); ALBUMIN/GLOBULIN RATIO 1.3 (1.0-2.2); BILIRUBIN,TOTAL 1.4 mg/dL (0.2-1.0); CALCIUM 9.2 mg/dL (8.5-10.3); CREATININE 0.8 mg/dL (0.4-1.0); POTASSIUM 3.1 mmol/L (3.5-5.0); TOTAL PROTEIN 7.8 g/dL (6.7-8.2)
[2022-06-03] MEDS ORDERED: POTASSIUM CHLORIDE 20 MEQ TABLET PO STA (12:52)
[2022-06-03] MEDS ORDERED: SODIUM CHLORIDE 0.9% 500 ML IV STA (12:52)
--- NOTE | 2022-06-03 13:13 | XRAY Report ---
PROCEDURE: Chest 1 View X-Ray INDICATIONS: SOA TECHNIQUE: One view of the chest was acquired. COMPARISON: 03/27/2020 FINDINGS: Surgical changes and devices: Left reverse shoulder arthroplasty. Surgical clips at the GE junction below the diaphragm. Lungs and pleura: No pleural effusions or pneumothorax. Lungs are clear. Mediastinum: Mediastinal contours appear normal. Heart size is normal. Bones and chest wall: No bony abnormalities. Overlying soft tissues are normal. IMPRESSION: No acute cardiopulmonary disease. Reviewed by: Melly Baker MD on 06/03/2022 1:12 PM PDT Approved by: Melly Baker MD on 06/03/2022 1:12 PM PDT Station ID: [id number]
[2022-06-03 16:07] VITALS: BP 130/80
== END 2022-06-03 16:07 | disposition home or self-care (01) ==
LOC: EDUNIT# → ED 12:13
DX: E87.6 Hypokalemia (principal); J43.9 Emphysema, unspecified; R53.1 Weakness
CPT/HCPCS: 36415; 71045; 80053; 83735; 85025; 85379; 93005; 96360; 99283; 99284; A9270

== ENCOUNTER 2022-08-29 10:44 | Outpatient (CLI) | payer MEDICARE, MEDICAID ==
[2022-08-29 18:23] LABS: THYROID STIMULATING HORMONE 2.31 uIU/mL (0.34-5.60)
[2022-08-29 18:25] LABS: FREE T4 (FREE THYROXINE) 0.76 ng/dL (0.58-1.64)
[2022-08-29 21:44] LABS: ESTIMATED AVERAGE GLUCOSE 105 mg/dL (70-100); HEMOGLOBIN A1c% 5.3 % (4.27-6.07)
[2022-09-02 13:09] LABS: KAPPA FREE LT CHAINS SERUM 21.2 mg/L (3.3-19.4); KAPPA/LAMBDA RATIO SERUM 1.39 (0.26-1.65); LAMBDA FREE LT CHAINS SERUM 15.2 mg/L (5.7-26.3)
[2022-09-02 15:08] LABS: A/G RATIO 1.1 (0.7-1.7); ALBUMIN 3.8 g/dL (2.9-4.4); ALPHA-1-GLOBULIN 0.3 g/dL (0.0-0.4); ALPHA-2-GLOBULIN 0.8 g/dL (0.4-1.0); BETA GLOBULIN 1.1 g/dL (0.7-1.3); GAMMA GLOBULIN 1.2 g/dL (0.4-1.8); GLOBULIN, TOTAL 3.4 g/dL (2.2-3.9); PROTEIN TOTAL 7.2 g/dL (6.0-8.5)
== END 2022-08-29 10:45 | disposition home or self-care (01) ==
LOC: LAB.N 10:44
PROVIDERS: ATTEND Psychiatry & Neurology Neurology
DX: G62.9 Polyneuropathy, unspecified (principal); G60.9 Hereditary and idiopathic neuropathy, unspecified; R79.9 Abnormal finding of blood chemistry, unspecified
CPT/HCPCS: 36415; 81599; 82607; 83036; 83521; 83883; 84155; 84165; 84439; 84443

== ENCOUNTER 2022-11-07 16:37 | Outpatient (CLI) | payer MEDICARE, MEDICAID | END 2022-11-07 16:38 | disposition home or self-care (01) | LOC: LAB.N 16:37 | PROVIDERS: ATTEND Psychiatry & Neurology Neurology | DX: Z51.81 Encounter for therapeutic drug level monitoring (principal) | CPT/HCPCS: 81599 ==

== ENCOUNTER 2022-12-27 12:09 | Outpatient (CLI) | payer MEDICARE, MEDICAID ==
[2022-12-27 17:37] LABS: PT - PROTHROMBIN TIME 11.4 secs (9.9-12.6)
[2022-12-27 17:41] LABS: BASOPHILS % (AUTO) 0.7 %; EOSINOPHILS # (AUTO) 0.1 10^3/uL (0.0-0.7); HCT - HEMATOCRIT 39.9 % (37.0-47.0); HGB - HEMOGLOBIN 12.9 g/dL (12.0-16.0); LYMPHOCYTES # (AUTO) 1.5 10^3/uL (1.5-3.5); LYMPHOCYTES % (AUTO) 25.3 %; MEAN CORPUSCULAR HEMOGLOBIN 30.6 pg (27.0-31.0); MEAN CORPUSCULAR HGB CONC 32.3 g/dL (32.0-36.0); MEAN CORPUSCULAR VOLUME 94.8 fL (81.0-99.0); MEAN PLATELET VOLUME 10.7 fL (7.9-10.8); MONOCYTES % (AUTO) 16.9 %; NEUTROPHILS # (AUTO) 3.2 10^3/uL (1.5-6.6); NEUTROPHILS % (AUTO) 55.8 %; PLT - PLATELET COUNT 230 10^3/uL (130-450); RED BLOOD COUNT 4.21 10^6/uL (4.20-5.40); RED CELL DISTRIBUTION WIDTH 13.1 % (12.0-15.0); WHITE BLOOD COUNT 5.7 x10^3/uL (4.8-10.8)
== END 2022-12-27 12:10 | disposition home or self-care (01) ==
LOC: LAB.N 12:09
PROVIDERS: ATTEND Psychiatry & Neurology Neurology
DX: R23.3 Spontaneous ecchymoses (principal)
CPT/HCPCS: 36415; 85025; 85610

== ENCOUNTER 2023-04-03 11:00 | Outpatient (CLI) | payer MEDICARE, MEDICAID ==
[2023-04-03 18:00] LABS: ALBUMIN 4.3 g/dL (3.2-5.5); ALKALINE PHOSPHATASE 41 IU/L (42-121); ALT ALANINE AMINOTRANSFERASE 11 IU/L (10-60); AST ASPARTATE AMINOTRANSFERASE 17 IU/L (10-42); BILIRUBIN,DIRECT < 0.10 mg/dL (0.03-0.18); BILIRUBIN,TOTAL 0.4 mg/dL (0.2-1.0); TOTAL PROTEIN 7.4 g/dL (6.4-8.9)
[2023-04-03 18:02] LABS: BASOPHILS # (AUTO) 0.1 10^3/uL (0.0-0.1); EOSINOPHILS # (AUTO) 0.1 10^3/uL (0.0-0.7); EOSINOPHILS % (AUTO) 1.2 %; HCT - HEMATOCRIT 39.9 % (37.0-47.0); HGB - HEMOGLOBIN 12.6 g/dL (12.0-16.0); LYMPHOCYTES # (AUTO) 1.5 10^3/uL (1.5-3.5); LYMPHOCYTES % (AUTO) 25.5 %; MEAN CORPUSCULAR HEMOGLOBIN 30.4 pg (27.0-31.0); MEAN CORPUSCULAR HGB CONC 31.6 g/dL (32.0-36.0); MEAN CORPUSCULAR VOLUME 96.4 fL (81.0-99.0); MEAN PLATELET VOLUME 10.2 fL (7.9-10.8); MONOCYTES # (AUTO) 0.8 10^3/uL (0.0-1.0); MONOCYTES % (AUTO) 13.1 %; NEUTROPHILS # (AUTO) 3.5 10^3/uL (1.5-6.6); NEUTROPHILS % (AUTO) 59.2 %; PLT - PLATELET COUNT 272 10^3/uL (130-450); RED BLOOD COUNT 4.14 10^6/uL (4.20-5.40); RED CELL DISTRIBUTION WIDTH 12.9 % (12.0-15.0)
[2023-04-04 02:08] LABS: HBsAG SCREEN Negative (Negative)
[2023-04-04 04:09] LABS: HCV AB Non Reactive (Non Reactive)
== END 2023-04-03 11:01 | disposition home or self-care (01) ==
LOC: LAB.N 11:00
PROVIDERS: ATTEND Physician Assistant Medical
DX: L20.84 Intrinsic (allergic) eczema (principal)
CPT/HCPCS: 36415; 80076; 81599; 85025; 86480; 86803; 87340

== ENCOUNTER 2023-04-15 09:42 | Outpatient (CLI) | payer MEDICARE, MEDICAID ==
[2023-04-15 13:23] LABS: FERRITIN 59.8 ng/mL (11.0-306.8)
== END 2023-04-15 09:43 | disposition home or self-care (01) ==
LOC: LAB.N 09:42
DX: G25.81 Restless legs syndrome (principal); E83.10 Disorder of iron metabolism, unspecified
CPT/HCPCS: 36415; 82728; 83540; 84466

== ENCOUNTER 2023-06-13 15:53 | Outpatient (CLI) | payer MEDICARE, MEDICAID ==
--- NOTE | 2023-06-13 18:48 | XRAY Report ---
PROCEDURE: Hand 3 View LT INDICATIONS: OTHER SPECIFIED SPRAIN OF LEFT WRIST, INITIAL ENCO TECHNIQUE: 3 views of the hand(s) acquired. COMPARISON: None. FINDINGS: Bones: There are extensive postsurgical changes in carpal bones. No fractures or dislocations. No perry spicious bony lesions. Severe degenerative joint disease at the radiocarpal joint, triscaphe joint, first carpometacarpal joint, and mild degenerative joint disease at the first metacarpal phalangeal joint and multiple interphalangeal joints. Osteopenia. Soft tissues: No suspicious soft tissue calcifications or masses. IMPRESSION: 1. No acute bony abnormality. 2. Degenerative joint disease. 3. Extensive post surgical changes in carpal bones. 4. Osteopenia. Reviewed by: Roselyn Andreson MD on 06/13/2023 6:46 PM PDT Approved by: Roselyn Anderson MD on 06/13/2023 6:46 PM PDT Station ID: [id number]
--- NOTE | 2023-06-13 18:52 | XRAY Report ---
PROCEDURE: Wrist 3 View LT INDICATIONS: OTHER SPECIFIED SPRAIN OF LEFT WRIST, INITIAL ENCO TECHNIQUE: 3 views of the wrist were acquired. COMPARISON: None. FINDINGS: Bones: There are extensive postsurgical changes in carpal bones. Scaphoid is surgically resected. No fractures or dislocations. No suspicious bony lesions. Severe degenerative joint disease at the radio carpal joint and first carpometacarpal joint. Osteopenia. Soft tissues: No suspicious soft tissue calcifications or masses. IMPRESSION: 1. No acute bony abnormality. 2. Severe degenerative Joint disease. 3. Extensive post surgical changes. 4. Osteopenia. Reviewed by: Roselyn Anderson MD on 06/13/2023 6:51 PM PDT Approved by: Roselyn Anderson MD on 06/13/2023 6:51 PM PDT Station ID: [id number]
== END 2023-06-13 15:54 | disposition home or self-care (01) ==
LOC: DI 15:53
PROVIDERS: ATTEND Internal Medicine
DX: S63.592A Other specified sprain of left wrist, initial encounter (principal); M18.12 Unilateral primary osteoarthritis of first carpometacarpal joint, left hand; M19.042 Primary osteoarthritis, left hand; M85.88 Other specified disorders of bone density and structure, other site

== ENCOUNTER 2023-07-15 10:33 | Outpatient (CLI) | payer MEDICARE, MEDICAID ==
[2023-07-15 18:38] LABS: FERRITIN 45.5 ng/mL (11.0-306.8)
== END 2023-07-15 10:34 ==
LOC: LAB.N 10:33
PROVIDERS: ATTEND Nurse Practitioner
DX: G25.81 Restless legs syndrome (principal); E83.10 Disorder of iron metabolism, unspecified
CPT/HCPCS: 36415; 82728; 83540; 84466

== ENCOUNTER 2024-03-09 10:30 | Outpatient (CLI) | payer MEDICARE, MEDICAID ==
[2024-03-09 17:53] LABS: BASOPHILS % (AUTO) 0.7 %; EOSINOPHILS % (AUTO) 0.4 %; HCT - HEMATOCRIT 38.5 % (37.0-47.0); HGB - HEMOGLOBIN 12.7 g/dL (12.0-16.0); LYMPHOCYTES # (AUTO) 1.8 10^3/uL (1.5-3.5); MEAN CORPUSCULAR HEMOGLOBIN 31.4 pg (27.0-31.0); MEAN CORPUSCULAR VOLUME 95.3 fL (81.0-99.0); MEAN PLATELET VOLUME 10.2 fL (7.9-10.8); MONOCYTES # (AUTO) 0.7 10^3/uL (0.0-1.0); MONOCYTES % (AUTO) 12.7 %; NEUTROPHILS # (AUTO) 3.1 10^3/uL (1.5-6.6); PLT - PLATELET COUNT 279 10^3/uL (130-450); RED BLOOD COUNT 4.04 10^6/uL (4.20-5.40); RED CELL DISTRIBUTION WIDTH 13.6 % (12.0-15.0); WHITE BLOOD COUNT 5.7 x10^3/uL (4.8-10.8)
[2024-03-09 18:20] LABS: ALBUMIN 4.5 g/dL (3.2-5.5); ALBUMIN/GLOBULIN RATIO 1.6 (1.0-2.2); BILIRUBIN,TOTAL 0.4 mg/dL (0.2-1.0); CALCIUM 9.5 mg/dL (8.5-10.3); CREATININE 0.8 mg/dL (0.6-1.3); TOTAL PROTEIN 7.4 g/dL (6.4-8.9)
[2024-03-10 17:09] LABS: KAPPA FREE LT CHAINS SERUM 18.4 mg/L (3.3-19.4); KAPPA/LAMBDA RATIO SERUM 1.25 (0.26-1.65); LAMBDA FREE LT CHAINS SERUM 14.7 mg/L (5.7-26.3)
== END 2024-03-09 10:31 | disposition home or self-care (01) ==
LOC: LAB.N 10:30
PROVIDERS: ATTEND Internal Medicine Hematology & Oncology
DX: I10 Essential (primary) hypertension (principal); D47.2 Monoclonal gammopathy; R23.3 Spontaneous ecchymoses; G47.33 Obstructive sleep apnea (adult) (pediatric); G25.81 Restless legs syndrome; F39 Unspecified mood [affective] disorder; E78.49 Other hyperlipidemia
CPT/HCPCS: 36415; 80053; 82784; 83521; 83615; 84155; 84165; 85025; 85651; 86334

== ENCOUNTER 2024-11-23 12:02 | Observation (INO) ==
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
[2024-11-23 12:49] LABS: BASOPHILS % (AUTO) 0.3 %; EOSINOPHILS % (AUTO) 0.1 %; HGB - HEMOGLOBIN 12.7 g/dL (12.0-16.0); LYMPHOCYTES # (AUTO) 0.6 10^3/uL (1.5-3.5); LYMPHOCYTES % (AUTO) 8.6 %; MEAN CORPUSCULAR HEMOGLOBIN 31.2 pg (27.0-31.0); MEAN CORPUSCULAR HGB CONC 32.6 g/dL (32.0-36.0); MEAN CORPUSCULAR VOLUME 95.8 fL (81.0-99.0); MEAN PLATELET VOLUME 8.9 fL (7.9-10.8); MONOCYTES # (AUTO) 0.5 10^3/uL (0.0-1.0); MONOCYTES % (AUTO) 7.7 %; NEUTROPHILS # (AUTO) 5.8 10^3/uL (1.5-6.6); PLT - PLATELET COUNT 246 10^3/uL (130-450); RED BLOOD COUNT 4.07 10^6/uL (4.20-5.40); RED CELL DISTRIBUTION WIDTH 13.2 % (12.0-15.0)
--- NOTE | 2024-11-23 12:56 | XRAY Report ---
PROCEDURE: XR Chest 1V INDICATIONS: sob TECHNIQUE: One view of the chest was acquired. COMPARISON: Chest x-ray 06/03/2022 FINDINGS: Surgical changes and devices: Left 1st distal shoulder arthroplasty without hardware complication. R ight hypoglossal nerve stimulator device overlying the right hemithorax. Epigastric surgical clips. Lungs and pleura: No pleural effusions or pneumothorax. No consolidation. Mediastinum: Mediastinal contours appear normal. Heart size is normal. Bones and chest wall: No suspicious bony lesions. Overlying soft tissues appear unremarkable. IMPRESSION: No acute cardiothoracic process. Reviewed by: Fabrice Heaton MD on 11/23/2024 12:55 PM PDT Approved by: Fabrice Heaton MD on 11/23/2024 12:55 PM PDT Station ID: [id number]
--- NOTE | 2024-11-23 13:03 | XRAY Report ---
PROCEDURE: XR Knee 4+V RT INDICATIONS: right knee pain TECHNIQUE: 4 views of the knee(s) were acquired. COMPARISON: None. FINDINGS: Bones: No fractures or dislocations. No suspicious bony lesions. Medial knee hemiarthroplasty, st able in appearance compared to prior exam. Arthritic changes are present within the lateral compartme nt. Soft tissues: No knee joint effusion. No suspicious soft tissue calcifications or masses. IMPRESSION: No visualized acute fracture or dislocation. However, occult injury cannot be excluded. Recommend dereje rt interval imaging follow-up in 7-10 days as clinically indicated for additional evaluation. Reviewed by: Seda Penaloza MD on 11/23/2024 1:01 PM PDT Approved by: Seda Penaloza MD on 11/23/2024 1:01 PM PDT Station ID: [id number]
[2024-11-23 13:05] LABS: ALBUMIN 4.3 g/dL (3.2-5.5); ALBUMIN/GLOBULIN RATIO 1.3 (1.0-2.2); BILIRUBIN,TOTAL 0.5 mg/dL (0.2-1.0); CALCIUM 8.5 mg/dL (8.5-10.3); CREATININE 0.7 mg/dL (0.6-1.3); POTASSIUM 3.5 mmol/L (3.5-4.5); TOTAL PROTEIN 7.5 g/dL (6.4-8.9)
--- NOTE | 2024-11-23 14:32 | CT Report ---
PROCEDURE: CT Head WO INDICATIONS: Transient alteration of consciousness TECHNIQUE: Noncontrast 4.5 mm thick angled axial sections acquired from the foramen magnum to the vertex. For r adiation dose reduction, the following was used: automated exposure control, adjustment of mA and/or kV according to patient size. COMPARISON: None. FINDINGS: Image quality: Excellent. Edentulous. Ventricles and cortical sulci are mildly dilated commonly represents a pattern of atrophy. Mild areas of low-attenuation in the periventricular and deep white matter, commonly related to chron ic small vessel ischemic changes. No CT evidence of intracranial hemorrhage, mass lesion, mass effect. The orbits scalp, calvarium, paranasal sinuses, mastoid air cells, middle ear cavities within normal limits. Mild vascular calcifications bilateral cavernous, supraclinoid carotids. IMPRESSION: Atrophy and chronic white matter small vessel ischemic changes. No CT evidence of intracranial hemorr emanuel. If symptoms persist or worsen, or there is high clinical suspicion of intracranial abnormality, MRI c ould be performed. Reviewed by: Marcel Haines MD on 11/23/2024 2:30 PM PDT Approved by: Marcel Haines MD on 11/23/2024 2:30 PM PDT Station ID: [id number]
[2024-11-23] MEDS: SODIUM CHLORIDE 0.9% 1,000 ML IV STA (15:23)
--- NOTE | 2024-11-23 15:55 | HISTORY & PHYSICAL EXAMINATION ---
Chief Complaint Chief Complaint Chief Complaint: Weakness and AMS History of Present Illness Admitted From Admitted From:: ED History Obtained From Records Reviewed: [facility] History obtained from: daughter Exam Limitations: She is not a good historian and was most comfortable curled on her side. History of Present Illness HPI Comment/Other: Dinora is a 69 year old female with a medical history of subdural hematoma, seizures, HTN, COPD, and prediabetes. She presented to the ED with what sounds like a syncopal episode at home. Her daughter is here and is relaying the story as Dinora is not able to answer. Daughter notes this has happened before. The first time was in 2014 while Dinora was living in [place] ,and after this, her daughter moved her up to [place] to be closer. Her daughter reports this change in mental status started last night. Noted when her daughter arrived at patient's house, where she lives alone. Mom had called her and said she didn't feel good, so this morning the daughter arrived with an ensure drink only to find her mom bundled up in bed. The daughters major concern was that Dinora stops breathing and her eyes will roll backwards. Dinora was telling her that she was very hot and cold but mainly cold right now. When asked, the patient mentioned having a few headaches, increased urinary frequency, and feeling feverish but denied vision changes, chest pain, dyspnea, abdominal or back pain. Her daughter says she has a long list of medications that was given to EMS. Her daughter reports Dinora does not drink alcohol but used too, she smokes weed but denies other substance use. She has an Inspire device for sleep apnea. Caregivers stop by her house during the week and her daughter says Dinora spends most of her time at home drawing and sitting with her dog. Meds/Allgy Home Medications Ambulatory Orders Medication Instructions Recorded Confirmed diazepam 5 mg tablet 5 mg PO TID PRN Anxiety 02/14/14 12/31/21 duloxetine 30 mg capsule,delayed 30 mg PO DAILY 02/14/14 12/25/21 release ipratropium bromide 0.02 % 0.5 mg (2.5 mL) inhalation Q6H #30 03/27/20 12/31/21 solution for inhalation neb buspirone 7.5 mg tablet 7.5 mg PO BID 07/27/20 12/25/21 montelukast 5 mg chewable tablet 10 mg PO DAILY 07/27/20 12/25/21 (Singulair) sertraline 50 mg tablet 50 mg PO TID 07/27/20 12/25/21 simvastatin 10 mg tablet (Zocor) 10 mg PO QPM 07/27/20 12/31/21 amlodipine 2.5 mg tablet (Norvasc) 2.5 mg PO DAILY 12/25/21 12/25/21 colestipol 1 gram tablet (Colestid) 1 g PO BID 12/25/21 12/25/21 pregabalin 150 mg capsule (Lyrica) 150 mg PO BID 12/25/21 12/25/21 docusate sodium 100 mg capsule 200 mg (2 x 100 mg) PO DAILY #10 12/31/21 (Stool Softener) caps oxycodone 5 mg tablet 5 mg PO Q4-6H PRN Pain #7 tabs 12/31/21 Allergies Allergies Allergy/AdvReac Type Severity Reaction Status Date / Time Penicillins Allergy Severe Edema Verified 11/23/24 12:14 venlafaxine HCl * (From Allergy Severe Kidney Verified 11/23/24 12:14 Effexor) failure oxycodone Allergy Emesis Verified 11/23/24 12:15 PFSH Active Problems All Active Problems (Updated 11/23/24 @ 18:26 by Nicol Kenny) Altered mental status (Acute) Upper respiratory infection (Acute) Acute exacerbation of COPD with asthma (Acute) Right upper quadrant abdominal pain (Acute) Pre-diabetes (Acute) Renal colic on right side (Acute) Medical History Medical History (Updated 11/23/24 @ 18:26 by Nicol Kenny) RONAL (obstructive sleep apnea) Panic anxiety syndrome Colon polyp Chronic pain Peripheral neuropathy Psoriasis COPD (chronic obstructive pulmonary disease) L4 vertebral fracture Renal stone Essential hypertension COPD (chronic obstructive pulmonary disease) Surgical History Surgical History (Updated 11/23/24 @ 18:18 by Nicol Kenny) H/O hysterectomy for benign disease Total knee replacement status History of repair of hiatal hernia Status post reverse total arthroplasty of right shoulder Evaristo Mcclain 03/2016 Social History Social History Smoking Status: Never smoker If you are a former smoker, when did you quit? (Date/Year): 1999 How many cigarettes a day do you smoke? (20 cigarettes=1 Pk): 20 Do you dip or chew tobacco?: No Patient requests smoking cessation consult: No Initiate information on smoking cessation: No Living arrangement: At home Living Condition: With spouse/s.o. Relationship: Home Mobility Equipment: Wheeled walker Do you feel safe in your home environment?: Yes Suffered physical, verbal, emotional, or financial abuse?: No History of Abuse: No ETOH Use: POLST Patient has POLST: No Review of Systems Constitutional Reports: Fever, Chills, Weakness and Diaphoresis Genitourinary Reports: Urinary frequency Prior Level of Functionality: Daughter reports she moves, talks, and remembers things at an expected level. She spends most of her day drawing at home and has caregivers that come by to manage things in her house. Exam Exam Observed 3 episodes absent breath, nonresponsive to verbal or painful stimuli, and posterior/vertical nystagmus. Constitutional Appears in distress. Diaphoretic and tremulous. Eyes EOMs intact bilaterally, conjunctivae normal and no scleral icterus Neck/C-Spine visual inspection normal and no carotid bruits Respiratory breath sounds equal bilaterally Decreased tidal volume. Breath sounds were clear. Short inspiratory and expiratory phase. Cardiovascular normal heart rate noted, regular rhythm noted, no gallop, no rub, no murmur, no JVD and no bruits noted Gastrointestinal abdomen soft to palpation, nondistended and normoactive bowel sounds Mild suprapubic tenderness. Genitourinary no CVA tenderness Mild suprapubic tenderness Back/Pelvis spine normal to inspection Extremities no tenderness Mild pedal edema without pitting. Active movement of all 4 extremities. Neurology Mild slurring of words. Delayed or absent response to questions. Symmetrical facial movement. Psychiatry Disoriented and unorganized thought process. Skin Pale and diaphoretic. Conclusion/Plan Problem List (1) Altered mental status: Plan: Dinora presents to the ER with AMS, weakness, and observed tonic episodes. She is a poor historian and most of the history was received from her daughter. Awaiting medication reconciliation. BP has increased since arrival at ER from 130/97 to 163/102 With history of a subdural hematoma, previous seizures, and prediabetes and presenting symptoms of the AMS, weakness, HTN, and tonic episodes considering a neurological cause. Specifically, acute seizures may be caused by uremia, electrolyte imbalance, hyper- or hypoglycemia, or polypharmacy. * Ddx: * Seizure disorder * Polypharmacy * Acute head trauma * Stroke * Metabolic encephalopathy Presenting symptoms including short, labored breathing, diaphoresis, chills, polyuria, and AMS could suggest an infectious cause. * Ddx: * Sepsis * UTI Workup * Urinalysis -- uncollected * Troponin -- normal * Creatine Kinase - normal * CBC * Mildly decreased RBCs and Lymphocytes * CMP * Glucose 137 * Kidney function is unremarkable * Liver function is unremarkable * CT brain * Atrophy and chronic white matter small vessel ischemic changes. No CT evidence of intracranial hemorrhage. * Consider MRI if symptoms worsen or do not improve. * Telemetry * Echocardiogram * Left Ventricle -- normal size and function, EF 65% * Mild aortic regurgitation. * CXR * Left 1st distal shoulder arthroplasty without hardware complication. Right hypoglossal nerve stimulator device overlying the right hemithorax. Epigastric surgical clips. Unable to identify cause of AMS at this time. Extensive medical history and the patient being a poor historian requires rule out via diagnostics. Working to rule out possible neurological or infectious causes. Unable to get an MRI because she has a hypoglossal nerve stimulator. Plan * Urine collection - straight catheter * Continue to pursue possible cause for encephalopathy of infectious or pharmacological origin. * Still awaiting urinalysis results * Order neuro checks * Continue telemetry * PT/OT order to assess functional status * Monitor BP and assess need for management. Qualifiers: Altered mental status type: transient alteration of awareness Qualified Code(s): R40.4 - Transient alteration of awareness (2) COPD (chronic obstructive pulmonary disease): Plan: Chronic condition. She does not require home O2 and presented to ED with SPO2 97%. No acute exacerbation. On admission * Discontinue supplemental O2 and evaluate response * Continue home medications once list is reconciled. Qualifiers: COPD type: unspecified COPD Qualified Code(s): J44.9 - Chronic obstructive pulmonary disease, unspecified (3) Pre-diabetes: Plan: Glucose was 137 upon ED admission. Will pursue management once medications have been reconciled. * Order HgbA1c with morning labs * Will order Lispro on sliding scale if indicated by presentation of hyperglycemia. (4) Essential hypertension: Plan: Hypertensive in ED - 132/97 on arrival and currently 162/92. Will continue to monitor and implement home medications once list has been reconciled. Lab Results Lab results reviewed: Yes 11/23/24 12:40 11/23/24 12:40 Core Measures Anticipated LOS I expect patient to be DC'd or transferred within 96 hours.: Yes DVT/VTE - Prophylaxis VTE/DVT Prophylaxis med ordered at admit?: Yes
[2024-11-23 16:16] LABS: B. PARAPERTUSSIS- RESP PCR PAN NOT DETECTED; B. PERTUSSIS- RESP PCR PANEL NOT DETECTED; C. PNEUMONIAE- RESP PCR PANEL NOT DETECTED; CORONAVIRUS 229E-RESP PCR NOT DETECTED; CORONAVIRUS HKU1-RESP PCR NOT DETECTED; CORONAVIRUS NL63-RESP PCR NOT DETECTED; CORONAVIRUS OC43-RESP PCR NOT DETECTED; HUMAN METAPNEUMOVIRUS NOT DETECTED; INFLUENZA A- RESP PCR PANEL NOT DETECTED; INFLUENZA B - RESP PCR PANEL NOT DETECTED; M. PNEUMONIAE- RESP PCR PANEL NOT DETECTED; PARAINFLUENZA VIRUS 1 NOT DETECTED; PARAINFLUENZA VIRUS 2 NOT DETECTED; PARAINFLUENZA VIRUS 4 NOT DETECTED; RHINOVIRUS/ENTEROVIRUS NOT DETECTED; RSV- RESP PCR PANEL NOT DETECTED; SARS-CoV-2 -RESP PCR PANEL NOT DETECTED
[2024-11-23] MEDS ORDERED: SODIUM CHLORIDE FLUSH 0.9% 10 ML SYRINGE IVP PRN (18:39)
[2024-11-23] MEDS ORDERED: ONDANSETRON ODT 4 MG TABLET TL PRN (18:39)
[2024-11-23] MEDS: SODIUM CHLORIDE FLUSH 0.9% 10 ML SYRINGE IVP SCH (19:38)
[2024-11-23] MEDS: LACTATED RINGERS 1,000 ML IV SCH (19:38)
[2024-11-23] MEDS ORDERED: busPIRone 5 MG TABLET PO SCH (21:00)
[2024-11-23] MEDS: MONTELUKAST 10 MG TABLET PO SCH (21:15)
[2024-11-23] MEDS: PREGABALIN 100 MG CAPSULE PO SCH (21:15)
[2024-11-23] MEDS: HEPARIN 5,000 UNIT/ML VIAL SUBQ SCH (21:15)
[2024-11-23] MEDS: COLESTIPOL 1 GM PO SCH (21:19)
[2024-11-23] MEDS ORDERED: SERTRALINE 50 MG TABLET PO SCH (22:00)
[2024-11-23 23:22] LABS: BILIRUBIN,URINE NEGATIVE (NEGATIVE); GLUCOSE, URINE (UA) NEGATIVE (NEGATIVE); KETONES,URINE (UA) 15 mg/dL (NEGATIVE); LEUKOCYTE ESTERASE, URINE NEGATIVE (NEGATIVE); NITRITE,URINE NEGATIVE (NEGATIVE); OCCULT BLOOD,URINE TRACE-LYSE (NEGATIVE); PH,URINE 7.5 PH (5.0-7.5); PROTEIN,URINE NEGATIVE (NEGATIVE); UROBILINOGEN,URINE 0.2 (NORMAL) E.U./dL (NORMAL)
[2024-11-23 23:27] LABS: CLARITY,URINE CLEAR (CLEAR)
[2024-11-24 00:08] LABS: BACTERIA,URINE Rare /HPF (None Seen); EPITHELIAL CELLS,UR RARE Transitional /HPF (<= Few); RBC,URINE 0-5 /HPF (0-5); SQUAMOUS EPITHELIAL CELL,UR RARE Squamous (<= Few); WBC,URINE 0-3 /HPF (0-5)
[2024-11-24 06:02] VITALS: O2SAT 95
[2024-11-24 06:17] LABS: BASOPHILS % (AUTO) 0.4 %; EOSINOPHILS % (AUTO) 0.8 %; HCT - HEMATOCRIT 33.5 % (37.0-47.0); HGB - HEMOGLOBIN 11.2 g/dL (12.0-16.0); LYMPHOCYTES # (AUTO) 1.4 10^3/uL (1.5-3.5); MEAN CORPUSCULAR HEMOGLOBIN 31.9 pg (27.0-31.0); MEAN CORPUSCULAR HGB CONC 33.4 g/dL (32.0-36.0); MEAN CORPUSCULAR VOLUME 95.4 fL (81.0-99.0); MEAN PLATELET VOLUME 8.9 fL (7.9-10.8); MONOCYTES # (AUTO) 0.9 10^3/uL (0.0-1.0); MONOCYTES % (AUTO) 17.6 %; NEUTROPHILS # (AUTO) 2.8 10^3/uL (1.5-6.6); PLT - PLATELET COUNT 214 10^3/uL (130-450); RED BLOOD COUNT 3.51 10^6/uL (4.20-5.40); RED CELL DISTRIBUTION WIDTH 13.5 % (12.0-15.0); WHITE BLOOD COUNT 5.2 x10^3/uL (4.8-10.8)
[2024-11-24] MEDS: ACETAMINOPHEN 325 MG TABLET PO PRN (06:34)
[2024-11-24 06:35] LABS: CALCIUM 7.8 mg/dL (8.5-10.3); CREATININE 0.6 mg/dL (0.6-1.3); POTASSIUM 2.9 mmol/L (3.5-4.5)
[2024-11-24 07:21] LABS: ESTIMATED AVERAGE GLUCOSE 103 mg/dL (70-100); HEMOGLOBIN A1c% 5.2 % (4.27-6.07)
[2024-11-24] MEDS: IPRATROPIUM 0.2 MG/ML NEB INH SCH (08:22)
[2024-11-24 08:25] VITALS: BP 131/78; TEMP 98.6
[2024-11-24] MEDS: DULoxetine 30 MG CAPSULE PO SCH (08:42)
[2024-11-24] MEDS: POTASSIUM CHLORIDE 20 MEQ TABLET PO ONE (08:42)
[2024-11-24] MEDS: POTASSIUM CHLOR 10 MEQ/100 ML 10 MEQ/100 ML BAG IV SCH (08:44)
--- NOTE | 2024-11-24 11:45 | PROVIDER PROGRESS NOTE ---
Subjective Prog Note Date Prog Note Date: 11/24/24 Subjective Pt reports feeling: Improved Subjective: Dinora is a 69 year old female with a history of HTN, COPD, RONAL, prediabetes, panic anxiety syndrome, and chronic pain. In the ER, her daughter reported that the patient has a history of a subdural hematoma and accompanied seizure in 2014. The patient presented to the ER with altered mental status and weakness. Current Medications Current Medications Current Medications: Current Medications Generic Name Dose Route Start Last Admin Trade Name Freq PRN Reason Stop Dose Admin Acetaminophen 650 mg 11/23/24 18:39 11/24/24 06:34 Acetaminophen 325 Mg Tablet PO 650 mg Q4HR PRN Administration Pain 1 to 4, or Fever Duloxetine HCl 30 mg 11/24/24 09:00 11/24/24 08:42 Duloxetine 30 Mg Capsule PO 30 mg DAILY FELICIA Administration Heparin Sodium (Porcine) 5,000 unit 11/23/24 21:00 11/24/24 08:46 Heparin 5,000 Unit/Ml Vial SUBQ 5,000 unit BID FELICIA Administration Potassium Chloride 10 meq in 100 mls @ 100 mls/hr 11/24/24 08:00 11/24/24 10:53 Potassium Chloride IV 11/24/24 11:59 100 mls/hr Q1H FELICIA Administration Ipratropium [place] 0.5 mg 11/23/24 18:39 11/24/24 08:29 Ipratropium 0.2 Mg/Ml Neb INH Not Given Q6H FELICIA Montelukast Sodium 10 mg 11/23/24 21:00 11/23/24 21:15 Montelukast 10 Mg Tablet PO 10 mg QPM FELICIA Administration Ondansetron HCl 4 mg 11/23/24 18:39 Ondansetron Odt 4 Mg Tablet TL Q6HR PRN Nausea / Vomiting (Colestipol [ 1 each 11/23/24 21:00 11/24/24 08:43 Colestid] 1 Gm PO Not Given Tablet) BID FELICIA Pregabalin 200 mg 11/23/24 21:00 11/24/24 08:43 Pregabalin 100 Mg Capsule PO 200 mg BID FELICIA Administration Sodium Chloride 10 ml 11/23/24 18:39 Sodium Chloride Flush 0.9% 10 Ml Syringe IVP PRN PRN NEEDED PER PROVIDER ORDERS Sodium Chloride 10 ml 11/23/24 18:39 11/24/24 08:44 Sodium Chloride Flush 0.9% 10 Ml Syringe IVP 10 ml 0100,0900,1700 FELICIA Administration Objective Vital Signs/Intake & Output Reviewed Vital Signs: Yes Vital Signs: Vital Signs x48h Temp Pulse Resp BP Pulse Ox O2 Flow Rate 11/24/24 08:23 37 C 85 18 131/78 H 95 2 11/24/24 05:00 37.2 C 87 126/69 95 2 Intake & Output: Intake & Output 11/22/24 11/22/24 11/23/24 11/24/24 00:59 23:59 23:59 23:59 Intake Total 1100 / 1100 1600 / 1600 Output Total 850 / 850 Balance 250 / 250 1600 / 1600 Weight (kg) 86.183 kg Lab Results 11/24/24 06:09 11/24/24 06:09 Other Labs: I reviewed her labs and noted the following: * WBC are 5.2, prev. 7.0 * Potassium is 2.9, prev. 3.5. * Sodium is 137, prev. 138 * Glucose 103, prev. 138 * Troponin * Calcium 7.8, prev. 8.5 * UA unremarkable for infection * Kidney and renal function still normal Lab Results x24hrs 11/24/24 11/23/24 11/23/24 Range/Units 06:09 22:50 15:10 WBC 5.2 (4.8-10.8) x10^3/uL RBC 3.51 L (4.20-5.40) 10^6/uL Hgb 11.2 L (12.0-16.0) g/dL Hct 33.5 L (37.0-47.0) % MCV 95.4 (81.0-99.0) fL MCH 31.9 H (27.0-31.0) pg MCHC 33.4 (32.0-36.0) g/dL RDW 13.5 (12.0-15.0) % Plt Count 214 (130-450) 10^3/uL MPV 8.9 (7.9-10.8) fL Neut # (Auto) 2.8 (1.5-6.6) 10^3/uL Lymph # (Auto) 1.4 L (1.5-3.5) 10^3/uL Turner # (Auto) 0.9 (0.0-1.0) 10^3/uL Eos # (Auto) 0.0 (0.0-0.7) 10^3/uL Baso # (Auto) 0.0 (0.0-0.1) 10^3/uL Absolute Nucleated RBC 0.00 x10^3/uL Nucleated RBC % 0.0 /100WBC Sodium 137 (135-145) mmol/L Potassium 2.9 L (3.5-4.5) mmol/L Chloride 103 (101-111) mmol/L Carbon Dioxide 24 (21-32) mmol/L Anion Gap 10.0 (6-13) BUN 11 (6-20) mg/dL Creatinine 0.6 (0.6-1.3) mg/dL Estimated GFR (MDRD) 99 (>89) Glucose 103 (74-104) mg/dL Estimat Average Glucose 103 H (70-100) mg/dL Hemoglobin A1c % 5.2 (4.27-6.07) % Calcium 7.8 L (8.5-10.3) mg/dL Total Bilirubin (0.2-1.0) mg/dL AST (10-42) IU/L ALT (10-60) IU/L Alkaline Phosphatase (42-121) IU/L Total Creatine Kinase (30-223) IU/L Troponin I High Sens (2.3-14.8) ng/L Total Protein (6.4-8.9) g/dL Albumin (3.2-5.5) g/dL Globulin (2.1-4.2) g/dL Albumin/Globulin Ratio (1.0-2.2) Urine Color YELLOW Urine Clarity CLEAR (CLEAR) Urine pH 7.5 (5.0-7.5) PH Ur Specific [place] 1.020 (1.002-1.030) Urine Protein NEGATIVE (NEGATIVE) mg/dL Urine Glucose (UA) NEGATIVE (NEGATIVE) mg/dL Urine Ketones 15 H (NEGATIVE) mg/dL Urine Occult Blood TRACE-LYSE (NEGATIVE) Urine Nitrite NEGATIVE (NEGATIVE) Urine Bilirubin NEGATIVE (NEGATIVE) Urine Urobilinogen 0.2 (NORMAL) (NORMAL) E.U./dL Ur Leukocyte Esterase NEGATIVE (NEGATIVE) Urine RBC 0-5 (0-5) /HPF Urine WBC 0-3 (0-5) /HPF Ur Epithelial Cells RARE Transitional (<= Few) /HPF Ur Squamous Epith Cells RARE Squamous (<= Few) Urine Bacteria Rare (None Seen) /HPF Urine Culture Comments NOT INDICATED Nasal Adenovirus (PCR) NOT DETECTED Nasal B. parapertussis DNA (PCR) NOT DETECTED Nasal Coronavir 229E PCR NOT DETECTED Nasal Coronavir HKU1 PCR NOT DETECTED Nasal Coronavir NL63 PCR NOT DETECTED Nasal Coronavir OC43 PCR NOT DETECTED Nasal Enterovir/Rhinovir PCR NOT DETECTED Nasal Influenza B PCR NOT DETECTED Nasal Influenza A PCR NOT DETECTED Nasal Parainfluen 1 PCR NOT DETECTED Nasal Parainfluen 2 PCR NOT DETECTED Nasal Parainfluen 3 PCR NOT DETECTED Nasal Parainfluen 4 PCR NOT DETECTED Nasal RSV (PCR) NOT DETECTED Nasal B.pertussis DNA PCR NOT DETECTED Nasal C.pneumoniae (PCR) NOT DETECTED Joshua Human Metapneumo PCR NOT DETECTED Nasal M.pneumoniae (PCR) NOT DETECTED Nasal SARS-CoV-2 (PCR) NOT DETECTED 11/23/24 Range/Units 12:40 WBC 7.0 (4.8-10.8) x10^3/uL RBC 4.07 L (4.20-5.40) 10^6/uL Hgb 12.7 (12.0-16.0) g/dL Hct 39.0 (37.0-47.0) % MCV 95.8 (81.0-99.0) fL MCH 31.2 H (27.0-31.0) pg MCHC 32.6 (32.0-36.0) g/dL RDW 13.2 (12.0-15.0) % Plt Count 246 (130-450) 10^3/uL MPV 8.9 (7.9-10.8) fL Neut # (Auto) 5.8 (1.5-6.6) 10^3/uL Lymph # (Auto) 0.6 L (1.5-3.5) 10^3/uL Turner # (Auto) 0.5 (0.0-1.0) 10^3/uL Eos # (Auto) 0.0 (0.0-0.7) 10^3/uL Baso # (Auto) 0.0 (0.0-0.1) 10^3/uL Absolute Nucleated RBC 0.00 x10^3/uL Nucleated RBC % 0.0 /100WBC Sodium 138 (135-145) mmol/L Potassium 3.5 (3.5-4.5) mmol/L Chloride 101 (101-111) mmol/L Carbon Dioxide 29 (21-32) mmol/L Anion Gap 8.0 (6-13) BUN 8 (6-20) mg/dL Creatinine 0.7 (0.6-1.3) mg/dL Estimated GFR (MDRD) 83 L (>89) Glucose 138 H (74-104) mg/dL Estimat Average Glucose (70-100) mg/dL Hemoglobin A1c % (4.27-6.07) % Calcium 8.5 (8.5-10.3) mg/dL Total Bilirubin 0.5 (0.2-1.0) mg/dL AST 17 (10-42) IU/L ALT 12 (10-60) IU/L Alkaline Phosphatase 46 (42-121) IU/L Total Creatine Kinase 136 (30-223) IU/L Troponin I High Sens 4.8 (2.3-14.8) ng/L Total Protein 7.5 (6.4-8.9) g/dL Albumin 4.3 (3.2-5.5) g/dL Globulin 3.2 (2.1-4.2) g/dL Albumin/Globulin Ratio 1.3 (1.0-2.2) Urine Color Urine Clarity (CLEAR) Urine pH (5.0-7.5) PH Ur Specific [place] (1.002-1.030) Urine Protein (NEGATIVE) mg/dL Urine Glucose (UA) (NEGATIVE) mg/dL Urine Ketones (NEGATIVE) mg/dL Urine Occult Blood (NEGATIVE) Urine Nitrite (NEGATIVE) Urine Bilirubin (NEGATIVE) Urine Urobilinogen (NORMAL) E.U./dL Ur Leukocyte Esterase (NEGATIVE) Urine RBC (0-5) /HPF Urine WBC (0-5) /HPF Ur Epithelial Cells (<= Few) /HPF Ur Squamous Epith Cells (<= Few) Urine Bacteria (None Seen) /HPF Urine Culture Comments Nasal Adenovirus (PCR) Nasal B. parapertussis DNA (PCR) Nasal Coronavir 229E PCR Nasal Coronavir HKU1 PCR Nasal Coronavir NL63 PCR Nasal Coronavir OC43 PCR Nasal Enterovir/Rhinovir PCR Nasal Influenza B PCR Nasal Influenza A PCR Nasal Parainfluen 1 PCR Nasal Parainfluen 2 PCR Nasal Parainfluen 3 PCR Nasal Parainfluen 4 PCR Nasal RSV (PCR) Nasal B.pertussis DNA PCR Nasal C.pneumoniae (PCR) Joshua Human Metapneumo PCR Nasal M.pneumoniae (PCR) Nasal SARS-CoV-2 (PCR) ABX Reporting Has patient been on IV antibiotics over the past 48 hours?: No Sepsis Event Note (H) Evaluation Current Stage of Sepsis: Ruled out Sepsis Criteria Sepsis Criteria: 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
--- NOTE | 2024-11-24 12:21 | PHARMACY PROGRESS NOTE ---
Best Possible Medication History Admit Date and Time: 11/23/24 1534 Home Medications Medication Instructions Recorded Confirmed Type duloxetine 30 mg capsule,delayed 30 mg PO DAILY 02/14/14 11/24/24 History release simvastatin 10 mg tablet (Zocor) 10 mg PO QPM 07/27/20 11/24/24 History amlodipine 2.5 mg tablet (Norvasc) 2.5 mg PO DAILY 12/25/21 11/24/24 History colestipol 1 gram tablet (Colestid) 1 g PO BID 12/25/21 11/24/24 History docusate sodium 100 mg capsule 200 mg (2 x 100 mg) PO DAILY #10 12/31/21 11/24/24 Rx (Stool Softener) caps albuterol sulfate 90 mcg/actuation 2 puff inhalation PRN PRN 11/24/24 11/24/24 History aerosol inhaler shortness of breath or wheezing alendronate 70 mg tablet 70 mg PO QWEEK 11/24/24 11/24/24 History diazepam 2 mg tablet 2 mg PO PRN PRN anxiety 11/24/24 11/24/24 History ipratropium bromide 0.02 % 0.5 mg inhalation Q6H PRN 11/24/24 11/24/24 History solution for inhalation shortness of breath or wheezing pramipexole 0.25 mg tablet 0.25 mg PO QPM 11/24/24 11/24/24 History pregabalin 225 mg capsule 225 mg PO BID 11/24/24 11/24/24 History upadacitinib 30 mg tablet,extended 30 mg PO DAILY 11/24/24 11/24/24 History release 24 hr (Rinvoq) Processed by: Pharmacy (Medication Reconciliation completed by [employer]) Medications reviewed in ED?: No Medication History completed: Yes Patient Interview: Completed Secondary Source(s): Written medication list and Insurance records [facility] Statement: As the person ultimately responsible for medication therapy, providers are able to order a medication from an existing home medication list in [facility] via the "Reconcile Routine" prior to Confirmation of that medication by technical support internship. Such practice is discouraged except when the physician, in their clinical judgment, deems that a medical need exists for a medication without regard to previous use.
--- NOTE | 2024-11-24 13:00 | Discharge Summary ---
<Statement entered by Isrrael Crandall DNP - 11/24/24 18:48> Patient was seen and examined by me with a separate encounter after being seen by [employer] student. I reviewed the student's documentation including patient history, physical examination, laboratory, imaging, clinical assessment and treatment plan. I have discussed the management of the patient with the student, and with the patient. There are no changes. Discharge Summary Admit Date: 11/23/24 Discharge Date: 11/24/24 Primary Care Provider: Angela Stover MD Code Status: Attempt Resuscitation Discharge Facility Name: [facility] DIAGNOSES Admission Diagnoses: Altered Mental Status Chronic Obstructive Pulmonary Disease Pre-Diabetes Essential Hypertension Discharge Diagnoses with Status of Each Condition: Altered Mental Status -- Resolved. Chronic Obstructive Pulmonary Disease -- Chronic, stable. Pre-Diabetes -- Chronic Essential Hypertension -- Chronic HPI History of Present Illness: Dinora is a 69 year old female with a medical history of subdural hematoma, HTN, COPD, and prediabetes. She presented to the ED with what sounds like a syncopal episode at home. Her daughter is here and is relaying the story as Dinora is not able to answer. Daughter notes this has happened before. The first time was in 2014 while Dinora was living in [place] ,and after this, her daughter moved her up to [place] to be closer. Her daughter reports this change in mental status started last night. Noted when her daughter arrived at patient's house, where she lives alone. Mom had called her and said she didn't feel good, so this morning the daughter arrived with an ensure drink only to find her mom bundled up in bed. The daughters major concern was that Dinora stops breathing and her eyes will roll backwards. Dinora was telling her that she was very hot and cold but mainly cold right now. When asked, the patient mentioned having a few headaches, increased urinary frequency, and feeling feverish but denied vision changes, chest pain, dyspnea, abdominal or back pain. Her daughter says she has a long list of medications that was given to EMS. Her daughter reports Dinora does not drink alcohol but used too, she smokes weed but denies other substance use. She has an Inspire device for sleep apnea. Caregivers stop by her house during the week and her daughter says Dinora spends most of her time at home drawing and sitting with her dog. Additional HPI obtained once patient was awake and able to self-report: 69 year old female with a history of HTN, COPD, RONAL, prediabetes, panic anxiety syndrome, and chronic pain. In the ER, her daughter reported that the patient has a history of a subdural hematoma and accompanied seizure in 2014. The patient presented to the ER with altered mental status and weakness. Since she was admitted to acute care, the patient reports feeling better, just very tired and she has a bad headache. She woke up very sweaty this morning but is now feeling fine. This was not the first time these episodes have happened. She has seen a neurologist in the past because she deals with constant severe headaches and neck pain. For a while she was getting nerve blocks but stopped those a while ago because the lingering pain afterward was worse than the chronic pain. History of illness: patient states... * Started having episodes in high school where she could feel "it" start to happen. She would get really hot and then be paralyzed - unable to move or talk - but still able to hear. * The episodes continued inconsistently since then. Over the last 6 months she says she's probably had 5-6 episodes. * Yesterday 11/23 was the worst incident shes had because it was not an isolated episode, it kept recurring. * She has considered that the episodes are brought on by not taking her medications * This last week she was out of Rinvoq and pregabalin * She took all of her AM medications yesterday before the episodes * She denies any triggers that might cause the episodes no loud noises, bright lights, stress, alcohol, substances, etc. HOSPITAL COURSE Hospital Course: She was placed in observation and echocardiogram was performed which showed no significant valvular pathology and no PFO. CT head was unremarkable for acute intracranial processes. MRI was not performed due to hypoglossal nerve stimulator implant. Infectious workup was completed including chest xray and UA. Results were unremarkable for infection. Symptoms resolved spontaneously. She is already established with a neurologist, so she has been instructed to follow up with them and her PCP. 11/23/24 Echocardiogram Result: Mild mitral regurgitation. LV EF 65%. ALLERGIES Allergies Allergy/AdvReac Type Severity Reaction Status Date / Time Penicillins Allergy Severe Edema Verified 11/23/24 12:14 venlafaxine HCl * (From Allergy Severe Kidney Verified 11/23/24 12:14 Effexor) failure oxycodone Allergy Emesis Verified 11/23/24 12:15 MEDICATIONS Ambulatory Orders Medication Instructions Recorded Confirmed duloxetine 30 mg capsule,delayed 30 mg PO DAILY 02/14/14 11/24/24 release simvastatin 10 mg tablet (Zocor) 10 mg PO QPM 07/27/20 11/24/24 amlodipine 2.5 mg tablet (Norvasc) 2.5 mg PO DAILY 12/25/21 11/24/24 colestipol 1 gram tablet (Colestid) 1 g PO BID 12/25/21 11/24/24 docusate sodium 100 mg capsule 200 mg (2 x 100 mg) PO DAILY #10 12/31/21 11/24/24 (Stool Softener) caps albuterol sulfate 90 mcg/actuation 2 puff inhalation PRN PRN 11/24/24 11/24/24 aerosol inhaler shortness of breath or wheezing alendronate 70 mg tablet 70 mg PO QWEEK 11/24/24 11/24/24 diazepam 2 mg tablet 2 mg PO PRN PRN anxiety 11/24/24 11/24/24 ipratropium bromide 0.02 % 0.5 mg inhalation Q6H PRN 11/24/24 11/24/24 solution for inhalation shortness of breath or wheezing pramipexole 0.25 mg tablet 0.25 mg PO QPM 11/24/24 11/24/24 pregabalin 225 mg capsule 225 mg PO BID 11/24/24 11/24/24 upadacitinib 30 mg tablet,extended 30 mg PO DAILY 11/24/24 11/24/24 release 24 hr (Rinvoq) PHYSICAL EXAM AT DISCHARGE General Appearance: positive No acute distress and Alert Eyes Bilateral: positive Normal inspection, PERRL, EOMI, No lid inflammation, Conjunctivae nml and No scleral icterus ENT: positive ENT inspection nml Neck: positive Nml inspection, Thyroid nml, No JVD and Trachea midline Respiratory: positive Chest non-tender, No respiratory distress and Breath sounds nml Cardiovascular: positive Regular rate & rhythm, No murmur and No gallop Peripheral Pulses: positive 2+ Abdomen: positive Non-tender, No organomegaly, Nml bowel sounds and No distention Back: positive Nml inspection Skin: positive Color nml, No rash, Warm and Dry Extremities: positive Non-tender, Full ROM, Nml appearance and No pedal edema Neurologic/Psychiatric: positive Oriented x3, CN's nml (2-12), Motor nml, Sensation nml and Mood/affect nml LABS 11/24/24 06:09 11/24/24 06:09 DIAGNOSTIC IMAGING Diagnostic Imaging Results: Final report reviewed and See rad report SEPSIS Current Stage of Sepsis: Ruled out QUALITY (Female Hip Fx Only) Was patient sent home on osteoporosis medication?: No FOLLOW UP Follow Up: Follow up with PCP. Recommend neurology evaluation and possible EEG. Discharge Plan Discharge Patient Disposition: Home, Self Care Condition: Good Medically Cleared Date:: 11/24/24 Prescriptions: Continued duloxetine 30 MG capsule,delayed release(DR/EC) 30 mg PO DAILY Patient Comments: Patient currently taking every other day script is for twice daily. simvastatin [Zocor] 10 MG tablet 10 mg PO QPM amlodipine [Norvasc] 2.5 MG tablet 2.5 mg PO DAILY colestipol [Colestid] 1 GM tablet 1 g PO BID docusate sodium [Stool Softener] 100 MG capsule 200 mg PO DAILY Qty: 10 0RF alendronate 70 mg tablet 70 mg PO QWEEK Patient Comments: TAKE ONE TABLET BY MOUTH ONCE WEEKLY diazepam 2 mg tablet 2 mg PO PRN PRN (Reason: anxiety) Patient Comments: TAKE ONE TABLET BY MOUTH TWICE DAILY NEEDED pramipexole 0.25 mg tablet 0.25 mg PO QPM albuterol sulfate 90 mcg/actuation HFA aerosol inhaler 2 puff INHALATION PRN PRN (Reason: shortness of breath or wheezing) Patient Comments: INHALE TWO PUFFS BY MOUTH EVERY SIX HOURS NEEDED ipratropium bromide 0.2 MG/ML solution 0.5 mg inhalation Q6H PRN (Reason: shortness of breath or wheezing) pregabalin 225 mg capsule 225 mg PO BID Rinvoq 30 mg tablet extended release 24 hr 30 mg PO DAILY Diet: Regular Interventions: Belongings Inventory Last Done: 11/23/24 20:00 Discharge Last Done: 11/24/24 12:58 Discharge Checklist - Nursing Last Done: 11/24/24 12:58 Health Concerns: You came into the hospital in an altered mental state. The symptoms you describe are very nonstandard, so finding the cause has been difficult. There was no acute changes on your CT head and no significant changes on your echocardiogram. I am concerned at this point that you may have a seizure disorder or could be having a reaction to some of the meds you are on at home or possibly that this is withdrawal from other meds. I would like for you to follow-up with your neurologist, and explain these episodes to him. I would recommend an outpatient EEG to rule out seizure disorder. I am clearing him for activity as tolerated, regular diet. I am making no changes to your medication regimen as this was a transient episode Print Language: Kyrgyz Patient Instructions: Electroencephalography Stand Alone Forms: PCP List Follow-up Care: Angela Stover MD [Primary Care Provider] -
== END 2024-11-24 13:20 | disposition home or self-care (01) ==
LOC: MS2 12:02 → ED 12:02 → MS2 18:41
PROVIDERS: ADMIT Physician Assistant Medical; ATTEND Physician Assistant Medical
DX: J44.9 Chronic obstructive pulmonary disease, unspecified; R73.03 Prediabetes; R51.9 Headache, unspecified; G47.33 Obstructive sleep apnea (adult) (pediatric); R41.82 Altered mental status, unspecified; F41.0 Panic disorder [episodic paroxysmal anxiety]; Z87.891 Personal history of nicotine dependence; I10 Essential (primary) hypertension; R53.1 Weakness; R00.0 Tachycardia, unspecified